=== PATIENT | female | born 1955 | race Caucasian/White ===

== ENCOUNTER 2016-12-01 11:39 | Emergency (ER) | payer MEDICARE, MEDICAID ==
[~2016-12-01] VITALS: Ht 157.5 cm; Wt 108.0 kg
[~2016-12-01 11:39] MED LIST: AMLO10TA62 PO; ASPI-725 PO; ATOR40TA64 PO; CHOL200026 PO; CLOP75TA33 PO; ESCI10TA47 PO; HYDR-3995 PO; INSU100C13 SQ; INSU100V28 SQ; LEVO25TA9 PO; LISI-126 PO; METO-68 PO; NITR0.4T28 SL; QUET200T58 PO; SEVE800T9 PO; TRAZ-173 PO
--- OUTSIDE RECORDS SUMMARY | 2016-12-01 11:44 | XMS REPORT ---
Author Author Beverley Crooks [facility] eClinicalWorks Address Unknown Phone Unavailable Care Team Providers Care Transfer Clerk Name Role Phone Beverley Crooks CP Unavailable Allergies No Known Allergies Problems Problem Type Condition Code Onset Dates Condition Status Problem Pure hypercholesterolemia 272.0 Active Problem Polyneuropathy in diabetes 357.2 Active Problem Diabetes mellitus without mention of complication, type II or unspecified type, uncontrolled 250.02 Active Problem Depressive disorder, not elsewhere classified 311 Active Problem Renal dialysis status V45.11 Active Problem Chronic pain syndrome 338.4 Active Problem Coronary atherosclerosis of [place] coronary artery 414.01 Active Problem Sarcoidosis 135 Active Problem Proliferative diabetic retinopathy 362.02 Active Problem Hypothyroid 244.9 Active Problem Chronic kidney disease, Stage IV (severe) 585.4 Active Problem Unspecified essential hypertension 401.9 Active Problem 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
--- OUTSIDE RECORDS SUMMARY | 2016-12-01 11:44 | XMS REPORT ---
Author Author Beverley Crooks [facility] eClinicalWorks Address Unknown Phone Unavailable Care Team Providers Care Facilities Plant Engineer Name Role Phone Beverley Crooks CP Unavailable Allergies No Known Allergies Problems Problem Type Condition ICD-9 Code Onset Dates Condition Status Problem Pure hypercholesterolemia 272.0 Active Problem Polyneuropathy in diabetes 357.2 Active Problem Diabetes mellitus without mention of complication, type II or unspecified type, uncontrolled 250.02 Active Problem Depressive disorder, not elsewhere classified 311 Active Problem Renal dialysis status V45.11 Active Problem Chronic pain syndrome 338.4 Active Problem Coronary atherosclerosis of [place] coronary artery 414.01 Active Problem Sarcoidosis 135 Active Problem Proliferative diabetic retinopathy 362.02 Active Problem Hypothyroid 244.9 Active Problem Chronic kidney disease, Stage IV (severe) 585.4 Active Problem Unspecified essential hypertension 401.9 Active Problem 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
--- OUTSIDE RECORDS SUMMARY | 2016-12-01 11:44 | XMS REPORT ---
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 Assessment Closed fracture of epiphysis (separation) (upper) of neck of femur 820.01 Active Problem Pure hypercholesterolemia 272.0 Active Problem Polyneuropathy in diabetes 357.2 Active Problem Diabetes mellitus without mention of complication, type II or unspecified type, uncontrolled 250.02 Active Problem Depressive disorder, not elsewhere classified 311 Active Problem Renal dialysis status V45.11 Active Assessment Depressive disorder, not elsewhere classified 311 Active Assessment Chronic pain syndrome 338.4 Active Problem Chronic pain syndrome 338.4 Active Assessment Hypothyroid 244.9 Active Problem Coronary atherosclerosis of [place] coronary artery 414.01 Active Problem Sarcoidosis 135 Active Problem Proliferative diabetic retinopathy 362.02 Active Problem Hypothyroid 244.9 Active Assessment Polyneuropathy in diabetes 357.2 Active Assessment Chronic kidney disease, Stage IV (severe) 585.4 Active Assessment Renal dialysis status V45.11 Active Assessment Coronary atherosclerosis of [place] coronary artery 414.01 Active Assessment Diabetes mellitus without mention of complication, type II or unspecified type, uncontrolled 250.02 Active Problem Chronic kidney disease, Stage IV (severe) 585.4 Active Assessment Unspecified essential hypertension 401.9 Active Assessment Pure hypercholesterolemia 272.0 Active Medications Medication Code System Code Instructions Start Date End Date Status Dosage Quetiapine Fumarate [facility] [address]-51 200 MG Orally Once a day 1 tablet at bedtime Metoprolol Tartrate [facility] [address]-82 50 MG Orally Twice a day Oct 10, 2012 1 tablet Renvela [facility] [address]-91 800 MG Orally Three times a day 2 tablets with meals Lisinopril [facility] [address]-08 20MG Orally Once a day 1 tablet Tramadol HCl [facility] [address]-13 50 MG Orally tid 1-2 tablets Aspirin [facility] [address]-20 81 mg Orally Once a day 1 tablet Humalog KwikPen [facility] [address]-04 100 UNIT/ML Subcutaneous three times a day 18 units with meals Lantus SoloStar [facility] [address]-07 100 UNIT/ML Subcutaneous Once a day December 17, 2013 80 units Hydrocodone-Acetaminophen [facility] [address]-27 10-325 MG Orally 1 TID prn pain Sep 22, 2014 Apr 15, 2015 1 tablet Plavix [facility] [address]-56 75 MG Orally Once a day 1 tablet [employer] [place] [facility] [address] 31G X 8 MM 4 times every day May 18, 2014 as directed Blood Glucose Meter [facility] 0 1 as directed. Dispense lancets and test strips dx , 250.02. Patient with low vision, needs large-number meter or talking meter TID , Jul 16, 2014 1, Cholecalciferol [facility] [address]-24 1000 UNIT Orally Once a day 2 tablets Escitalopram Oxalate [facility] [address]-27 10 MG Orally Once a day 1 tablet OneTouch Ultra Blue test strips [facility] [id number] none in vitro Dx. 250.02 three times daily November 02, 2014 as directed Amlodipine Besylate [facility] [address]-97 10 MG Orally Once a day 1 tablet Nitrostat [facility] [address]-42 0.4 MG Sublingual max 3 doses 1 tablet under the tongue, may repeat every 5 min x3 then call 911 Procedures Procedure Coding System Code Date OFFICE VISIT, EST-MOD. COMPLEXITY (25 MIN) CPT-4 88442 March 16, 2015 HEMOGLOBIN A1C, IN HOUSE CPT-4 79152 March 16, 2015 [facility] visit Established Patient CPT-4 G0467 March 16, 2015 IH LIPID PANEL CPT-4 53110 March 16, 2015 RENAL FUNCTION PANEL CPT-4 88914 March 16, 2015 Vital Signs Date/Time: March 16, 2015 Height 62.5 in Weight 236.4 lbs Temperature 98.2 F Blood Pressure Diastolic 83 mm Hg Blood Pressure Systolic 190 mm Hg Cardiac Monitoring Heart Rate 71 /min BMI 42.54 Index Respiratory Rate 16 /min Results Name Result Date Reference Range Unit Abnormality Flag In House HB A1c In House Renal Function Panel Summary Purpose eClinicalWorks Submission
--- OUTSIDE RECORDS SUMMARY | 2016-12-01 11:44 | XMS REPORT ---
Author Author Beverley Crooks [facility] eClinicalWorks Address Unknown Phone Unavailable Care Team Providers Care Bicycle Technician Name Role Phone Beverley Crooks CP Unavailable [...] syndrome 338.4 Active Problem Coronary atherosclerosis of [place] coronary artery 414.01 Active Problem Sarcoidosis 135 Active Problem Proliferative diabetic retinopathy 362.02 Active Problem Hypothyroid 244.9 Active Assessment Renal dialysis status V45.11 Active Problem Chronic kidney disease, Stage IV (severe) 585.4 Active Assessment Diabetes mellitus without mention of complication, type II or unspecified type, uncontrolled 250.02 Active Problem Unspecified essential hypertension 401.9 Active Assessment Unspecified essential hypertension 401.9 Active Problem 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
--- OUTSIDE RECORDS SUMMARY | 2016-12-01 11:44 | XMS REPORT ---
Author Author Beverley Crooks [facility] eClinicalWorks Address Unknown Phone Unavailable Care Team Providers Care Programming Equipment Operator Name Role Phone Beverley Crooks CP Unavailable Allergies No Known Allergies Problems Problem Type Condition Code Onset Dates Condition Status Problem Renal dialysis status V45.11 Active Problem Chronic pain syndrome 338.4 Active Problem Depressive disorder, not elsewhere classified 311 Active Problem Chronic kidney disease, stage 4 (severe) N18.4 Active Assessment Major depressive disorder, single episode, unspecified F32.9 Active Problem 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 Problem Type 2 diabetes mellitus with hyperglycemia E11.65 Active Problem Chronic pain syndrome G89.4 Active Problem Major depressive disorder, single episode, unspecified F32.9 Active Problem 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.359 Active Problem Hypothyroidism, unspecified E03.9 Active Problem 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 Problem Pure hypercholesterolemia 272.0 Active Problem Chronic kidney disease, Stage IV (severe) 585.4 Active Problem Unspecified essential hypertension 401.9 Active Problem Sarcoidosis 135 Active Problem Coronary atherosclerosis of [place] coronary artery 414.01 Active Problem Diabetes mellitus without mention of complication, type II or unspecified type, uncontrolled 250.02 Active Problem Hypothyroid 244.9 Active Problem Polyneuropathy in diabetes 357.2 Active Problem Proliferative diabetic retinopathy 362.02 Active Medications Medication Code System Code Instructions Start Date End Date Status Dosage Escitalopram Oxalate [facility] [address]-04 10 MG Orally Once a day 1 tablet Results No Known Results Summary Purpose eClinicalWorks Submission
--- OUTSIDE RECORDS SUMMARY | 2016-12-01 11:45 | XMS REPORT ---
Author Author Shaila Jolly [facility] Address [address] [id number] Care Team Providers Care Powerbuilder Name Role Phone Shaila Jolly Unavailable [phone] PROBLEMS Type Condition ICD9-CM Code EYH63-DY Code Onset Dates Condition Status SNOMED Code Problem Generalized abdominal pain R10.84 Active 064902478 Problem Pharyngoesophageal dysphagia R13.14 Active 40936878 Problem Elevated liver enzymes R74.8 Active 594863981 Assessment Gastroesophageal reflux disease, esophagitis presence not specified K21.9 Oct, Active 089404986 Problem Diarrhea, unspecified type R19.7 Active 80998647 Problem Nausea R11.0 Active 709405747 Problem Elevated ferritin level R79.89 Active 405375022 Problem Gastroesophageal reflux disease, esophagitis presence not specified K21.9 Active 295326542 Problem Adenomatous polyp of colon, unspecified part of colon D12.6 Active 355405613 Problem Colitis K52.9 Active 50796982 Problem Schatzki's ring K22.2 Active 322258907 Problem Hiatal hernia K44.9 Active 18530822 ALLERGIES Substance Reaction Event Type Date Status Neurotips Unknown Drug Allergy Oct, Active Lyrica Unknown Drug Allergy Oct, Active SOCIAL HISTORY No smoking Hx information available PLAN OF CARE VITAL SIGNS Heart Rate 74 /min 2016-10-24 Respiratory Rate 18 /min 2016-10-24 Blood pressure systolic 128 mm Hg 2016-10-24 Blood pressure diastolic 72 mm Hg 2016-10-24 MEDICATIONS Medication Instructions Dosage Frequency Start Date End Date Duration Status NovoLog 100 UNIT/ML Subcutaneous three times a day 25 units 8h Active Trazodone HCl 100 MG Orally Once a day 1 tablet at bedtime 24h Active Clopidogrel Bisulfate 75 MG Orally Once a day 1 tablet 24h Active Atorvastatin Calcium 40 MG Orally Once a day 1 tablet 24h Active Renvela 800 MG Orally Three times a day 1 tablet with meals 8h Active Metoprolol Tartrate 50 MG Orally Twice a day 1 tablet with food 12h Active Lantus 100 UNIT/ML 100 units at bedtime Active Lisinopril 20 MG Active Escitalopram Oxalate 10 MG Orally Once a day 1 tablet 24h Active Pantoprazole Sodium 40 MG Orally in morning 1 tablet Oct, 30 day(s) Active Quetiapine Fumarate 200 MG Orally Once a day 1 tablet at bedtime 24h Active Nulytely with Flavor Packs 420 GM Orally take as directed as directed Sep, 1 days Active RESULTS No Results PROCEDURES Procedure Date Ordered Related Diagnosis Body Site Office Visit, Est Pt., Level 4 Oct 24, 2016 IMMUNIZATIONS No Known Immunizations
--- OUTSIDE RECORDS SUMMARY | 2016-12-01 11:45 | XMS REPORT | Referral Summary ---
Author Author [facility] Organization [facility] Address Unknown Phone Unavailable Care Team Providers Care Dry House Worker Name Role Phone Bren Milner Primary Care Physician [phone] Encounter [facility] [id number] Date(s): 01/11/15 - 01/19/[address] [facility] [address] [place] [address] Discharge Diagnosis: Hypertension Discharge Diagnosis: Coronary artery disease Discharge Diagnosis: Hyponatremia Discharge Diagnosis: Anemia of chronic disease Discharge Diagnosis: Fall from slip, trip, or stumble Discharge Diagnosis: Comminuted right femur fracture - ORIF with IMN on 01/12/15 Discharge Diagnosis: ESRD on dialysis - M, W, F Discharge Diagnosis: Morbid obesity Final: MORBID OBESITY Final: Anemia in chronic kidney disease Final: OTHER AND UNSPECIFIED HYPERLIPIDEMIA Final: CORONARY ATHEROSCLEROSIS OF [place] CORONARY ARTERY Final: Renal dialysis status Final: Long-Term (Current) Use of Insulin Final: PERCUTANEOUS TRANSLUMINAL CORONARY ANGIOPLASTY, POSTSURGICAL STATUS Final: OTHER OPIATES AND RELATED NARCOTICS CAUSING ADVERSE EFFECTS IN THERAPEUTIC USE Final: FALL FROM OTHER SLIPPING, TRIPPING, OR STUMBLING Final: ACCIDENTS OCCURRING IN RESIDENTIAL INSTITUTION Final: HOME ACCIDENTS Final: SUPRACONDYLAR FRACTURE OF FEMUR, CLOSED Final: End stage renal disease Final: ACUTE RESPIRATORY FAILURE Final: HYPOSMOLALITY AND/OR HYPONATREMIA Final: Hypertensive chronic kidney disease, unspecified, with chronic kidney disease stage V or end stage renal disease Final: Body Mass Index 40.0-44.9, Adult Final: Diabetes mellitus with neurological manifestations, type II or unspecified type, not stated as uncontrolled Final: GASTROPARESIS Final: DISORDER OF BONE AND CARTILAGE, UNSPECIFIED Discharge Disposition: 03-[facility] Attending Physician: Wilton Mena MD Admitting Physician: Wilton Mena MD Vital Signs Most recent to 1 oldest [Reference Range]: Temperature Oral 36.7 degC [35.8-37.3 degC] (01/19/15 7:00 AM) Temperature Skin 36.4 degC [36-37 degC] (01/12/15 4:30 PM) Temperature Temporal 36 degC Artery [36.3-37.8 *LOW* degC] (01/11/15 5:27 PM) Peripheral Pulse 69 bpm Rate [60-100 bpm] (01/19/15 9:25 AM) Heart Rate Monitored 68 bpm [60-100 bpm] (01/19/15 4:37 AM) Respiratory Rate 18 br/min [14-20 br/min] (01/19/15 7:00 AM) Blood Pressure 171/71 mmHg [90-140/60-90 mmHg] *HI* (01/19/15 9:25 AM) Mean Arterial 78 mmHg Pressure, Cuff (01/12/15 4:30 PM) SpO2 92 % (01/19/15 10:39 AM) Problem List Condition Effective Dates Status Health Status Informant Acute chest Active patient pain(Confirmed) Acute Active pain(Confirmed) At risk for activity Active intolerance(Confirme d)1 At risk of pressure Active sore(Confirmed) Benign essential Active hypertension(Confirm ed) Bowel Active dysfunction(Confirme d)2 Depressive disorder, Active not elsewhere classified(Confirmed ) Diabetes(Confirmed) Active patient Dialysis Active patient patient(Confirmed) Fluid Active imbalance(Confirmed) 3 Shingles(Confirmed)4 Active High Active cholesterol(Confirme d) Severe Active Hypertriglyceridemia (Confirmed) Impaired skin Active integrity(Confirmed) 5 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 ) Mixed Active hyperlipidemia(Confi rmed) Morbid Active patient obesity(Confirmed) Post herpetic Active neuralgia(Confirmed) 6 Self -care Active deficit(Confirmed)7 Tissue perfusion Active alteration(Confirmed )8 Controlled type 2 Active diabetes with renal manifestation(Confir med) 1Problem added automatically by system based on initiation of At Risk for Activity Intolerance Plan of Care 2Problem added automatically by system based on initiation of Bowel Dysfunction Plan of Care 3Problem added automatically by system based on initiation of Fluid Volume Imbalance Plan of Care 412/, 03/10, 01/09 5Problem added automatically by system based on initiation of Impaired Skin Integrity Plan of Care 612/, 03/10, 01/09 7Problem added automatically by system based on initiation of Self Care Deficit Plan of Care 8Problem added automatically by system based on initiation of Tissue Perfusion Cerebral Plan of Care Allergies, Adverse Reactions, Alerts Substance Reaction Severity Status gabapentin Active Lyrica Active Medications amLODIPine 10 mg, Oral, Daily, 0 Refill(s) Start Date: 09/11/14 Status: Ordered aspirin 81 mg, Oral, Daily, 0 Refill(s) Start Date: 09/11/14 Status: Ordered atorvastatin 40 mg oral tablet 1 tabs, Oral, Daily, # 30 tabs, 6 Refill(s), other reason (Rx) Start Date: 09/11/14 Status: Ordered calcitriol 0.5 mcg, Oral, MWF, 0 Refill(s) Start Date: 09/11/14 Status: Ordered escitalopram 10 mg, Oral, Daily, 0 Refill(s) Start Date: 01/11/15 Status: Ordered insulin lispro 100 units/mL subcutaneous solution Sliding Scale Medium, SubCutaneous, As Indicated, Hyperglycemia/High Blood Sugar , 0 Refill(s) Start Date: 01/19/15 Status: Ordered insulin lispro 100 units/mL subcutaneous solution Sliding Scale Medium, SubCutaneous, As Indicated, Hyperglycemia/High Blood Sugar , 0 Refill(s) Start Date: 01/19/15 Status: Ordered insulin lispro 100 units/mL subcutaneous solution 18 units, SubCutaneous, TIDWM, 0 Refill(s) Start Date: 01/19/15 Status: Ordered insulin lispro 100 units/mL subcutaneous solution 0.36 mL, SubCutaneous, TIDWM, 0 Refill(s) Start Date: 09/11/14 Status: Ordered Lantus 80 units, SubCutaneous, qPM, 0 Refill(s) Start Date: 09/11/14 Status: Ordered lisinopril 20 mg, Oral, Daily, 0 Refill(s) Start Date: 09/11/14 Status: Ordered metoprolol tartrate 50 mg oral tablet 1 tabs, Oral, BID, 0 Refill(s) Start Date: 09/11/14 Status: Ordered Nitrostat 0.4 mg sublingual tablet 1 tabs, SubLingual, q5min, as needed for chest pain, not to exceed 3 doses/15 min--if pain persists, seek medical attention, # 100 tabs, 0 Refill(s) Start Date: 09/11/14 Status: Ordered Plavix 75 mg, Oral, Daily, 0 Refill(s) Start Date: 09/11/14 Status: Ordered Renvela 800 mg oral tablet 1,600 mg 2 tabs, Oral, TID, # 90 tabs, 0 Refill(s) Start Date: 02/11/15 Status: Ordered SEROquel 150 mg, Oral, Bedtime (once a day), 0 Refill(s) Start Date: 09/11/14 Status: Ordered traMADol 50 mg oral tablet 50-100 mg, Oral, q4hr, Pain Moderate (4-6), [facility] [phone], # 90 tabs, 0 Refill(s) Start Date: 01/27/15 Status: Ordered Results Blood Gases Most recent to 1 oldest [Reference Range]: pH [7.35-7.45] 7.33 *LOW* (01/12/15 8:55 AM) pCO2 Art [35-45 56 mmHg mmHg] *HI* (01/12/15 8:55 AM) Arterial PO2 [80-100 82 mmHg mmHg] (01/12/15 8:55 AM) Bicarbonate [22-26 29 mEq/L mEq/L] *HI* (01/12/15 8:55 AM) Base Excess Art 2 [0-2] (01/12/15 8:55 AM) pO2 Art [90.0-97.0 95.1 % %] (01/12/15 8:55 AM) LPM Art 4.0 L/min (01/12/15 8:55 AM) O2 Panel Nasal Cannula (01/12/15 8:55 AM) Spec Site Radial-R (01/12/15 8:55 AM) Hematology Most recent to 1 oldest [Reference Range]: WBC [4.8-10.8 9.3 10*3/uL 10*3/uL] (01/18/15 8:35 AM) RBC [4.00-5.20 3.17 10*6/uL 10*6/uL] *LOW* (01/18/15 8:35 AM) Hgb [12.0-16.0 9.2 gm/dL gm/dL] *LOW* (01/18/15 8:35 AM) Hct [37.0-47.0 %] 27.8 % *LOW* (01/18/15 8:35 AM) MCV [82.0-99.0 fL] 87.7 fL (01/18/15 8:35 AM) MCH [27.0-32.0 pg] 29.0 pg (01/18/15 8:35 AM) MCHC [32.0-36.0 33.1 gm/dL gm/dL] (01/18/15 8:35 AM) RDW [11.5-14.5 %] 13.1 % (01/18/15 8:35 AM) Platelet [150-400 222 10*3/uL 10*3/uL] (01/18/15 8:35 AM) MPV [9.4-12.4 fL] 9.6 fL (01/18/15 8:35 AM) Immature 2.0 % Granulocytes *HI* [0.0-1.0 %] (01/18/15 8:35 AM) Neutrophils [51-75 64 % %] (01/18/15 8:35 AM) Lymphocytes [20-46 19 % %] *LOW* (01/18/15 8:35 AM) Monocytes [4-11 %] 10 % (01/18/15 8:35 AM) Eosinophils [0-4 %] 5 % *HI* (01/18/15 8:35 AM) Basophils [0-2 %] 0 % (01/18/15 8:35 AM) Neutro Absolute 5.92 10*3 [1.90-7.00 10*3] (01/18/15 8:35 AM) Lymph Absolute 1.72 10*3 [0.80-3.30 10*3] (01/18/15 8:35 AM) Ada Absolute 0.96 10*3 [0.30-1.00 10*3] (01/18/15 8:35 AM) Eos Absolute 0.50 10*3 [0.00-0.50 10*3] (01/18/15 8:35 AM) Baso Absolute 0.02 10*3 [0.00-0.20 10*3] (01/18/15 8:35 AM) Nucleated RBC 0.0 /100 WBC Automated [0 /100 (01/18/15 8:35 AM) WBC] Chemistry Most recent to 1 oldest [Reference Range]: Sodium Lvl [136-144 123 mEq/L mEq/L] *LOW* (01/18/15 8:35 AM) Potassium Lvl 5.6 mEq/L [3.6-5.1 mEq/L] *HI* (01/18/15 8:35 AM) Chloride [99-109 91 mEq/L mEq/L] *LOW* (01/18/15 8:35 AM) CO2 [22-32 mEq/L] 23 mEq/L (01/18/15 8:35 AM) AGAP [3-20] 9 (01/18/15 8:35 AM) BUN [4-20 mg/dL] 39 mg/dL *HI* (01/18/15 8:35 AM) Glucose Lvl [70-100 188 mg/dL mg/dL] *HI* (01/18/15 8:35 AM) Creatinine Lvl 6.61 mg/dL [0.44-1.03 mg/dL] *HI* (01/18/15 8:35 AM) eGFR [>60] 6 1 *ABN* (01/18/15 8:35 AM) Calcium Lvl 8.6 mg/dL [8.6-10.0 mg/dL] (01/18/15 8:35 AM) Albumin Lvl [3.5-4.8 2.5 gm/dL gm/dL] *LOW* (01/18/15 8:35 AM) Iron [50-170 mcg/dL] 30 mcg/dL *LOW* (01/13/15 5:16 AM) TIBC [286-569 213 mcg/dL mcg/dL] *LOW* (01/13/15 5:16 AM) Iron Sat [11-46 %] 14 % (01/13/15 5:16 AM) Transferrin [192-382 143 mg/dL mg/dL] *LOW* (01/13/15 5:16 AM) Ferritin Lvl [11-307 1239 ng/mL ng/mL] *HI* (01/13/15 5:16 AM) Phosphorus [2.4-4.7 4.6 mg/dL 2 mg/dL] (01/18/15 8:35 AM) Blood Glucose, 200 mg/dL Capillary [74-106 *HI* mg/dL] (01/19/15 11:29 AM) 1Result Comment: Multiply eGFR results by 1.21 for race. 2Result Comment: High dosages of liposomal Amphotericin B (AmBisome) therapy or other drug preparations that use a liposomal envelope to facilitate drug delivery may cause falsely elevated results for phosphorus. Toxicology Most recent to 1 oldest [Reference Range]: Ethanol Lvl Not Detected (01/11/15 3:53 PM) Blood Bank Results Most recent to 1 oldest [Reference Range]: ABO/Rh O POS (01/13/15 3:26 PM) Antibody Screen Tube NEG (01/13/15 3:26 PM) Immunizations Vaccine Date Refusal Reason tetanus-diphth toxoids (Td) adult/adol 04/08/03 Procedures Procedure Date Related Diagnosis Body Site Arterial puncture, withdrawal of blood for 01/12/15 diagnosis Open Reduction Internal Fixation Femur Distal 01/12/15 with Intramedullary Nail (Right)1 Application of long leg splint (thigh to 01/11/15 ankle or toes) Adenoidectomy Anesthesia for vaginal hysterectomy Cholecystocecostomy Closure of arterial graft-enteric fistula Decompression laminectomy of lumbar spine Gall Bladder Hysterectomy2 Tonsillectomy 1auto-populated from documented surgical case 2w/out BSO, due to bleeding Social History Social History Type Response Smoking Status Never smoker Assessment and Plan No data available for this section
--- OUTSIDE RECORDS SUMMARY | 2016-12-01 11:45 | XMS REPORT ---
Author Author Beverley Crooks [facility] eClinicalWorks Address Unknown Phone Unavailable Care Team Providers Care Director Of Sports Medicine Name Role Phone Beverley Crooks CP Unavailable [...] syndrome 338.4 Active Problem Coronary atherosclerosis of [place] coronary artery 414.01 Active Problem Sarcoidosis 135 Active Problem Proliferative diabetic retinopathy 362.02 Active Problem Hypothyroid 244.9 Active Assessment Type 2 diabetes mellitus with hyperglycemia E11.65 Active Problem Chronic kidney disease, Stage IV (severe) 585.4 Active Problem Unspecified essential hypertension 401.9 Active Problem 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 Dispense lancets and test strips dx , 250.02. Patient with low vision, needs large-number meter or talking meter TID , Jul 16, 2014 1, Renvela [facility] [address]-69 800 MG Orally Three times a day 2 tablets with meals Plavix [facility] [address]-82 75 MG Orally Once a day 1 tablet Seroquel [facility] [address]-70 200 MG Orally Once a day 1 tablet at bedtime Cholecalciferol [facility] [address]-11 1000 UNIT Orally Once a day 2 tablets Lantus SoloStar [facility] [address]-08 100 UNIT/ML Subcutaneous Once a day December 17, 2013 85 units Aspirin [facility] [address]-63 81 mg Orally Once a day 1 tablet OneTouch Ultra Blue test strips [facility] [id number] none in vitro Dx. 250.02 three times daily November 02, 2014 as directed Atorvastatin Calcium [facility] [address]-72 40 MG Orally Once a day 1 tablet Nitrostat [facility] [address]-20 0.4 MG Sublingual max 3 doses 1 tablet under the tongue, may repeat every 5 min x3 then call 911 NovoLog Flexpen [facility] [address]-66 100 UNIT/ML Subcutaneous Three times a day Jul 16, 2015 36 units with meals OneTouch Delica Lancets [facility] [address]-73 none subcutaneous Three times a day Jul 16, 2015 as directed (dx E11.65) [employer] [place] [facility] [address] 31G X 8 MM 4 times every day May 18, 2014 as directed Results No Known Results Summary Purpose eClinicalWorks Submission
--- OUTSIDE RECORDS SUMMARY | 2016-12-01 11:45 | XMS REPORT ---
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 Problem Diabetes mellitus without mention of complication, type II or unspecified type, uncontrolled 250.02 Active Problem Pure hypercholesterolemia 272.0 Active Problem Renal dialysis status V45.11 Active Problem Proliferative diabetic retinopathy 362.02 Active Problem Depressive disorder, not elsewhere classified 311 Active Problem Sarcoidosis 135 Active Problem Polyneuropathy in diabetes 357.2 Active Problem Hypothyroid 244.9 Active Problem Coronary atherosclerosis of [place] coronary artery 414.01 Active Assessment Unspecified essential hypertension 401.9 Active Assessment Diabetes mellitus without mention of complication, type II or unspecified type, uncontrolled 250.02 Active Problem Chronic kidney disease, Stage IV (severe) 585.4 Active Assessment Polyneuropathy in diabetes 357.2 Active Problem Unspecified essential hypertension 401.9 Active Medications Medication Code System Code Instructions Start Date End Date Status Dosage Metoclopramide HCl [facility] [address]-30 10 MG Orally Four times a day Active 1 tablet 30 minutes before meals and at bedtime as needed Plavix [facility] [address]-45 75 MG Orally Once a day Active 1 tablet Lisinopril [facility] [address]-98 20MG Orally Once a day Active 1 tablet Colchicine [facility] [address]-29 0.6 MG Orally Twice a day Active 1 tablet Aspirin [facility] [address]-20 81 mg Orally Once a day Active 1 tablet Hydrocodone-Acetaminophen [facility] [address]-62 7.5-325 MG Orally three times a day Apr 14, 2014 Aug 15, 2014 Active 1 tablet as needed Amlodipine Besylate [facility] [address]-68 5 mg Orally Once a day Active 1 tablet [employer] [place] [facility] [address] 31G X 8 MM 4 times every day May 18, 2014 Active as directed NovoLog Flexpen [facility] [address]-78 100 UNIT/ML Subcutaneous Three times daily with meals December 19, 2013 Active 36 units Lantus SoloStar [facility] [address]-02 100 UNIT/ML Subcutaneous Once a day December 17, 2013 Active 80 units Atorvastatin Calcium [facility] [address]-89 20 MG Orally Once a day December 17, 2013 Active 1 tablet Quetiapine Fumarate [facility] [address]-63 100 MG Orally Once a day Active 1 tablet at bedtime Cymbalta [facility] [address]-12 90 MG Orally daily (30mg and 60mg) Active 1 capsule Levothyroxine Sodium [facility] [address]-42 25 MCG Orally Once a day Active 1 tablet on an empty stomach in the morning Blood Glucose Meter [facility] [address]857 1 as directed. Dispense lancets and test strips as well. Patient with low vision, needs large-number meter or talking meter TID Jul 16, 2014 Active 1 Metoprolol Tartrate [facility] [address]-98 50 MG Orally Twice a day Oct 10, 2012 Active 1 tablet Nitrostat [facility] [address]-73 0.4 MG Sublingual every 0 hrs Active 1 tablet under the tongue and allow to dissolve as needed Cholecalciferol [facility] [address]-39 1000 UNIT Orally Once a day Active 2 tablets Procedures Procedure Coding System Code Date OFFICE VISIT, EST-LOW COMPLEXITY (15 MIN.) CPT-4 11080 Jul 16, 2014 Vital Signs Date/Time: Jul 16, 2014 Height 62.5 inches Weight 242.5 lbs Temperature 98.1 F Blood Pressure Diastolic 64 mm Hg Blood Pressure Systolic 138 mm Hg Cardiac Monitoring Heart Rate 84 Beats per Minute BMI 43.64 Index Respiratory Rate 18 per Minute Results No Known Results Summary Purpose eClinicalWorks Submission
--- OUTSIDE RECORDS SUMMARY | 2016-12-01 11:45 | XMS REPORT ---
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 Problem Diabetes mellitus without mention of complication, type II or unspecified type, uncontrolled 250.02 Active Problem Pure hypercholesterolemia 272.0 Active Problem Chronic kidney disease, Stage IV (severe) 585.4 Active Problem Unspecified essential hypertension 401.9 Active Problem Renal dialysis status V45.11 Active Problem Proliferative diabetic retinopathy 362.02 Active Problem Depressive disorder, not elsewhere classified 311 Active Problem Sarcoidosis 135 Active Problem Polyneuropathy in diabetes 357.2 Active Problem Hypothyroid 244.9 Active Problem Coronary atherosclerosis of [place] coronary artery 414.01 Active Medications Medication Code System Code Instructions Start Date End Date Status Dosage Blood Glucose Meter [facility] 59528 1 as directed. Dispense lancets and test strips dx, 250.02. Patient with low vision, needs large-number meter or talking meter TID, Jul 16, 2014 Active 1, Vital Signs Date/Time: Jul 16, 2014 Height 62.5 inches Weight 242.5 lbs Temperature 98.1 F Blood Pressure Diastolic 64 mm Hg Blood Pressure Systolic 138 mm Hg Cardiac Monitoring Heart Rate 84 Beats per Minute BMI 43.64 Index Respiratory Rate 18 per Minute Results No Known Results Summary Purpose eClinicalWorks Submission
--- OUTSIDE RECORDS SUMMARY | 2016-12-01 11:45 | XMS REPORT ---
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
--- OUTSIDE RECORDS SUMMARY | 2016-12-01 11:45 | XMS REPORT ---
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
--- OUTSIDE RECORDS SUMMARY | 2016-12-01 11:45 | XMS REPORT ---
Author Author Beverley Crooks [facility] eClinicalWorks Address Unknown Phone Unavailable Care Team Providers Care [place] Roofer Name Role Phone Beverley Crooks CP Unavailable Allergies No Known Allergies Problems Problem Type Condition Code Onset Dates Condition Status Problem Renal dialysis status V45.11 Active Problem Chronic pain syndrome 338.4 Active Problem Depressive disorder, not elsewhere classified 311 Active Problem Chronic kidney disease, stage 4 (severe) N18.4 Active Assessment Chronic pain syndrome G89.4 Active Problem Dependence on renal dialysis Z99.2 [...] Sarcoidosis 135 Active Problem Coronary atherosclerosis of [place] coronary artery 414.01 Active Problem Diabetes mellitus without mention of complication, type II or unspecified type, uncontrolled 250.02 Active Problem Hypothyroid 244.9 Active Problem Polyneuropathy in diabetes 357.2 Active Problem Proliferative diabetic retinopathy 362.02 Active Medications Medication Code System Code Instructions Start Date End Date Status Dosage [facility] [address]-69 10-325 MG Orally every 6 hrs, May fill 03-17-16. November 17, 2015 Apr 13, 2016 1 tablet as needed Results No Known Results Summary Purpose eClinicalWorks Submission
--- OUTSIDE RECORDS SUMMARY | 2016-12-01 11:45 | XMS REPORT ---
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
--- OUTSIDE RECORDS SUMMARY | 2016-12-01 11:45 | XMS REPORT ---
Author Author Beverley Crooks [facility] eClinicalWorks Address Unknown Phone Unavailable Care Team Providers Care Is/It Project Manager Name Role Phone Beverley Crooks CP Unavailable Allergies, Adverse Reactions, Alerts Substance Reaction Event Type Neurontin hives, rash Drug Allergy Lyrica Suicidality Drug Allergy Problems Problem Type Condition Code Onset Dates Condition Status Problem Pure hypercholesterolemia 272.0 Active Problem Polyneuropathy in diabetes 357.2 Active Problem Diabetes mellitus without mention of complication, type II or unspecified type, uncontrolled 250.02 Active Problem Depressive disorder, not elsewhere classified 311 Active Problem Renal dialysis status V45.11 Active Problem Chronic pain syndrome 338.4 Active Problem Coronary atherosclerosis of [place] coronary artery 414.01 Active Problem Sarcoidosis 135 Active Problem Proliferative diabetic retinopathy 362.02 Active Problem Hypothyroid 244.9 Active Assessment Hypothyroid 244.9 Active Assessment Chronic kidney disease, Stage IV (severe) 585.4 Active Assessment Chronic pain syndrome 338.4 Active Assessment Diabetes mellitus without mention of complication, type II or unspecified type, uncontrolled 250.02 Active Problem Chronic kidney disease, Stage IV (severe) 585.4 Active Assessment Unspecified essential hypertension 401.9 Active Problem Unspecified essential hypertension 401.9 Active Assessment Pure hypercholesterolemia 272.0 Active Problem 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 250.02 three times daily November 02, 2014 as directed Hydrocodone-Acetaminophen [facility] [address]-92 10-325 MG Orally 1 TID prn pain Sep 22, 2014 December 23, 2014 1 tablet Lisinopril [facility] [address]-41 20MG Orally Once a day 1 tablet Amlodipine Besylate [facility] [address]-72 5 mg Orally Once a day 1 tablet Lantus SoloStar [facility] [address]-91 100 UNIT/ML Subcutaneous Once a day December 17, 2013 80 units Cholecalciferol [facility] [address]-92 1000 UNIT Orally Once a day 2 tablets Quetiapine Fumarate [facility] [address]-20 100 MG Orally Once a day 1 tablet at bedtime Colchicine [facility] [address]-43 0.6 MG Orally Twice a day 1 tablet Levothyroxine Sodium [facility] [address]-91 25 MCG Orally Once a day 1 tablet on an empty stomach in the morning Metoprolol Tartrate [facility] [address]-32 50 MG Orally Twice a day Oct 10, 2012 1 tablet Metoclopramide HCl [facility] [address]-58 10 MG Orally Four times a day 1 tablet 30 minutes before meals and at bedtime as needed Blood Glucose Meter [place] 0 1 as directed. Dispense lancets and test strips dx , 250.02. Patient with low vision, needs large-number meter or talking meter TID , Jul 16, 2014 1, Aspirin [facility] [address]-53 81 mg Orally Once a day 1 tablet Nitrostat [facility] [address]-44 0.4 MG Sublingual every 0 hrs 1 tablet under the tongue and allow to dissolve as needed Lipitor [facility] [address]-47 10 MG Orally Once a day 1 tablet Cymbalta [facility] [address]-89 90 MG Orally daily (30mg and 60mg) 1 capsule Plavix [facility] [address]-32 75 MG Orally Once a day 1 tablet Procedures Procedure Coding System Code Date OFFICE VISIT, EST-MOD. COMPLEXITY (25 MIN) CPT-4 35217 November 23, 2014 [facility] visit Established Patient CPT-4 G0467 November 23, 2014 Vital Signs Date/Time: November 23, 2014 Height 62.5 in Weight 237.12 lbs Temperature 98.4 F Blood Pressure Diastolic 78 mm Hg Blood Pressure Systolic 136 mm Hg Cardiac Monitoring Heart Rate 84 /min BMI 42.67 Index Respiratory Rate 16 /min Results No Known Results Summary Purpose eClinicalWorks Submission
--- OUTSIDE RECORDS SUMMARY | 2016-12-01 11:46 | XMS REPORT ---
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 To be filled or later 1 TID prn pain Sep 22, 2014 May 14, 2015 1 tablet Results No Known Results Summary Purpose eClinicalWorks Submission
--- OUTSIDE RECORDS SUMMARY | 2016-12-01 11:46 | XMS REPORT ---
Author Author Beverley Crooks Organization eClinicalWorks Address Unknown Phone Unavailable Care Team Providers Care Hackler Doll Wigs Name Role Phone Beverley Crooks CP Unavailable Allergies No Known Allergies Problems Problem Type Condition Code Onset Dates Condition Status Problem Renal dialysis status V45.11 Active Problem Chronic pain syndrome 338.4 Active Problem Depressive disorder, not elsewhere classified 311 Active Problem Chronic kidney disease, stage 4 (severe) N18.4 Active Problem Dependence on renal dialysis Z99.2 [...] Sarcoidosis 135 Active Problem Coronary atherosclerosis of [place] coronary artery 414.01 Active Problem Diabetes mellitus without mention of complication, type II or unspecified type, uncontrolled 250.02 Active Problem Hypothyroid 244.9 Active Problem Polyneuropathy in diabetes 357.2 Active Problem Proliferative diabetic retinopathy 362.02 Active Medications No Known Medications Results No Known Results Summary Purpose eClinicalWorks Submission
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
--- OUTSIDE RECORDS SUMMARY | 2016-12-01 11:46 | XMS REPORT ---
Author Author Beverley Crooks [employer] Address Unknown Phone Unavailable Care Team Providers Care Tack Cutter Name Role Phone Beverley Crooks CP Unavailable [...] syndrome 338.4 Active Problem Coronary atherosclerosis of [place] coronary artery 414.01 Active Problem Sarcoidosis 135 Active Problem Proliferative diabetic retinopathy 362.02 Active Problem Hypothyroid 244.9 Active Assessment Chronic kidney disease, stage 4 (severe) N18.4 Active Problem Chronic kidney disease, Stage IV (severe) 585.4 Active Assessment Chronic pain syndrome G89.4 Active Problem Unspecified essential hypertension 401.9 Active Assessment Type 2 diabetes mellitus with hyperglycemia E11.65 Active Problem 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 Medications Medication Code System Code Instructions Start Date End Date Status Dosage Aspirin [facility] [address]-47 81 mg Orally Once a day 1 tablet Humalog KwikPen [facility] [address]-15 100 UNIT/ML Subcutaneous three times a day 36 units with meals Metoprolol Tartrate [facility] [address]-31 50 MG Orally Twice a day Oct 10, 2012 1 tablet Amlodipine Besylate [facility] [address]-68 10 MG Orally Twice every day 1 tablet OneTouch Ultra Blue test strips [facility] 55858649905 none in vitro Dx. 250.02 three times daily November 02, 2014 as directed Plavix [facility] [address]-84 75 MG Orally Once a day 1 tablet Seroquel [facility] [address]-29 200 MG Orally Once a day 1 tablet at bedtime [place] [facility] [address]-96 7.5-325 MG Orally tid Jul 15, 2015 1 tablet as needed Renvela [facility] [address]-12 800 MG Orally Three times a day 2 tablets with meals Lisinopril [facility] [address]-52 20 MG Orally Once a day 1 tablet Cholecalciferol [facility] [address]-96 1000 UNIT Orally Once a day 2 tablets Blood Glucose Meter [facility] 0 1 as directed. Dispense lancets and test strips dx , 250.02. Patient with low vision, needs large-number meter or talking meter TID , Jul 16, 2014 1, Nitrostat [facility] [address]-81 0.4 MG Sublingual max 3 doses 1 tablet under the tongue, may repeat every 5 min x3 then call [address] [place] [facility] [address] 31G X 8 MM 4 times every day May 18, 2014 as directed Escitalopram Oxalate [facility] [address]-59 10 MG Orally Once a day 1 tablet Lantus SoloStar [facility] [address]-92 100 UNIT/ML Subcutaneous Once a day December 17, 2013 85 units Atorvastatin Calcium [facility] [address]-27 40 MG Orally Once a day 1 tablet Procedures Procedure Coding System Code Date OFFICE VISIT, EST-LOW COMPLEXITY (15 MIN.) CPT-4 01047 Jun 15, 2015 [facility] visit Established Patient CPT-4 G0467 Jun 15, 2015 Vital Signs Date/Time: Jun 15, 2015 Height 62.5 in Weight 234.5 lbs Temperature 98.0 F Blood Pressure Diastolic 74 mm Hg Blood Pressure Systolic 130 mm Hg Cardiac Monitoring Heart Rate 72 /min BMI 42.20 Index Respiratory Rate 16 /min Results No Known Results Summary Purpose [employer]ClinicalWorks Submission
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
--- OUTSIDE RECORDS SUMMARY | 2016-12-01 11:46 | XMS REPORT ---
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 Problem Diabetes mellitus due to underlying condition with diabetic neuropathy , unspecified E08.40 Active Problem Unspecified essential hypertension 401.9 Active Problem Chronic kidney disease, Stage IV (severe) 585.4 Active Problem Pure hypercholesterolemia E78.0 Active Problem 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 Problem 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.359 Active Problem Type 2 diabetes mellitus with hyperglycemia E11.65 Active Problem Chronic kidney disease, stage 4 (severe) N18.4 Active Problem Polyneuropathy in diabetes 357.2 Active Problem Sarcoidosis 135 Active Problem Pure hypercholesterolemia 272.0 Active Problem Diabetes mellitus without mention of complication, type II or unspecified type, uncontrolled 250.02 Active Problem Proliferative diabetic retinopathy 362.02 Active Problem Renal dialysis status V45.11 Active Problem Coronary atherosclerosis of [place] coronary artery 414.01 Active Problem Depressive disorder, not elsewhere classified 311 Active Problem Hypothyroid 244.9 Active Problem Chronic pain syndrome 338.4 Active Medications No Known Medications Results No Known Results Summary Purpose [employer] Submission
--- OUTSIDE RECORDS SUMMARY | 2016-12-01 11:47 | XMS REPORT | Referral Summary ---
Author Author [facility] Organization [facility] Address Unknown Phone Unavailable Care Team Providers Care Brass Pourer Name Role Phone ValeriyMiguel avalosBeverley Primary Care Physician [phone] Encounter VC Date(s): 08/11/15 - 08/17/15 [facility] [address] [place] [address] Discharge Disposition: 03-Nursing Home Facility Attending Physician: Daniel Beard MD Admitting Physician: Daniel Beard MD Vital Signs Most recent to 1 oldest [Reference Range]: Temperature Oral 37.0 degC [35.8-37.3 degC] (08/17/15 8:36 AM) Temperature Skin 36.4 degC [36-37 degC] (08/11/15 3:15 PM) Temperature Temporal 36.5 degC Artery [36.3-37.8 (08/11/15 8:10 AM) degC] Peripheral Pulse 72 bpm Rate [60-100 bpm] (08/17/15 8:36 AM) Heart Rate Monitored 88 bpm [60-100 bpm] (08/12/15 4:00 AM) Respiratory Rate 18 br/min [14-20 br/min] (08/17/15 8:36 AM) Blood Pressure 133/70 mmHg [90-140/60-90 mmHg] (08/17/15 8:36 AM) Mean Arterial 74 mmHg Pressure, Cuff (08/11/15 3:30 PM) SpO2 92 % (08/17/15 8:36 AM) Problem List Condition Effective Dates Status Health Status Informant Acute chest Active patient pain(Confirmed) Acute Active pain(Confirmed) At risk for activity Active intolerance(Confirme d)1 At risk for Active falls(Confirmed)2 At risk of pressure Active sore(Confirmed) Benign essential Active hypertension(Confirm ed) Bowel Active dysfunction(Confirme d)3 Depressive disorder, Active not elsewhere classified(Confirmed ) Diabetes(Confirmed) Active patient Dialysis Active patient patient(Confirmed) Fluid Active imbalance(Confirmed) 4 Shingles(Confirmed)5 Active High Active cholesterol(Confirme d) Severe Active Hypertriglyceridemia (Confirmed) Impaired skin Active integrity(Confirmed) 6 Knowledge Active deficit(Confirmed)7 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 3Problem added automatically by system based on initiation of Bowel Dysfunction Plan of Care 4Problem added automatically by system based on initiation of Fluid Volume Imbalance Plan of Care 512/07, 03/10, 01/09 6Problem added automatically by system based on initiation of Impaired Skin Integrity Plan of Care 7Problem added automatically by system based on initiation of Knowledge Deficit Plan of Care 812/07, 03/10, 01/09 9Problem added automatically by system based on initiation of Self Care Deficit Plan of Care 10Problem added automatically by system based on initiation of Tissue Perfusion Cerebral Plan of Care Allergies, Adverse Reactions, Alerts Substance Reaction Severity Status gabapentin Active Lyrica Active Medications acetaminophen 325 mg oral tablet 650 mg 2 tabs, Oral, q4hr, Fever, 0 Refill(s) Start Date: 08/17/15 Status: Ordered amLODIPine 10 mg, Oral, Daily, 0 Refill(s) Start Date: 09/11/14 Status: Ordered aspirin 81 mg, Oral, Daily, 0 Refill(s) Start Date: 09/11/14 Status: Ordered atorvastatin 40 mg oral tablet 1 tabs, Oral, Daily, # 30 tabs, 6 Refill(s), other reason (Rx) Start Date: 09/11/14 Status: Ordered calcitriol 0.5 mcg, Oral, MWF, 0 Refill(s) Start Date: 09/11/14 Status: Ordered Cipro 250 mg oral tablet 250 mg 1 tabs, Oral, q48hr, End date after dose on 09/22/15, 0 Refill(s) Start Date: 08/16/15 Status: Ordered darbepoetin jessica 100 mcg/0.5 mL injectable solution 100 mcg 0.5 mL, SubCutaneous, q7day, 0 Refill(s) Start Date: 08/17/15 Status: Ordered escitalopram 10 mg, Oral, Daily, 0 Refill(s) Start Date: 01/11/15 Status: Ordered insulin lispro 100 units/mL subcutaneous solution Sliding Scale Medium, SubCutaneous, As Indicated, Hyperglycemia/High Blood Sugar , 0 Refill(s) Start Date: 01/19/15 Status: Ordered insulin lispro 100 units/mL subcutaneous solution 18 units, SubCutaneous, TIDWM, 0 Refill(s) Start Date: 09/11/14 [...] 0 Refill(s) Start Date: 09/11/14 Status: Ordered [place] 5 mg-325 mg oral tablet 1 tabs, Oral, q4hr, Pain Moderate (4-6), not to exceed 10 tablets/24 hours; give with food to prevent nausea, # 30 tabs, 0 Refill(s) Start Date: 08/17/15 Stop Date: 09/17/15 Status: Ordered Plavix 75 mg, Oral, Daily, 0 Refill(s) Start Date: 09/11/14 Status: Ordered Renvela 800 mg oral tablet 1,600 mg 2 tabs, Oral, TID, # 90 tabs, 0 Refill(s) Start Date: 02/11/15 Status: Ordered SEROquel 150 mg, Oral, Daily, 0 Refill(s) Start Date: 08/11/15 Status: Ordered vancomycin 500 mg intravenous injection 500 mg, IV, Mon/We/Fr, End dose after doses of 09/22/15, # 1 vials, 0 Refill(s), other reason (Rx) Start Date: 08/16/15 Stop Date: 09/22/15 Status: Ordered Results Hematology Most recent to 1 oldest [Reference Range]: WBC [4.8-10.8 8.4 10*3/uL 10*3/uL] (08/17/15 6:20 AM) RBC [4.00-5.20] 3.26 *LOW* (08/17/15 6:20 AM) Hgb [12.0-16.0 9.7 gm/dL gm/dL] *LOW* (08/17/15 6:20 AM) Hct [37.0-47.0 %] 29.9 % *LOW* (08/17/15 6:20 AM) MCV [82.0-99.0 fL] 91.7 fL (08/17/15 6:20 AM) MCH [27.0-32.0 pg] 29.8 pg (08/17/15 6:20 AM) MCHC [32.0-36.0 32.4 gm/dL gm/dL] (08/17/15 6:20 AM) RDW [11.5-14.5 %] 14.5 % (08/17/15 6:20 AM) Platelet [150-400 189 10*3/uL 10*3/uL] (08/17/15 6:20 AM) MPV [9.4-12.4 fL] 9.8 fL (08/17/15 6:20 AM) Immature 0.9 % Granulocytes (08/16/15 8:37 AM) [0.0-1.0 %] Neutrophils [51-75 61 % %] (08/16/15 8:37 AM) Lymphocytes [20-46 19 % %] *LOW* (08/16/15 8:37 AM) Monocytes [4-11 %] 13 % *HI* (08/16/15 8:37 AM) Eosinophils [0-4 %] 6 % *HI* (08/16/15 8:37 AM) Basophils [0-2 %] 0 % (08/16/15 8:37 AM) Neutro Absolute 4.64 10*3 [1.90-7.00 10*3] (08/16/15 8:37 AM) Lymph Absolute 1.49 10*3 [0.80-3.30 10*3] (08/16/15 8:37 AM) Andrew Absolute 0.98 10*3 [0.30-1.00 10*3] (08/16/15 8:37 AM) Eos Absolute 0.46 10*3 [0.00-0.50 10*3] (08/16/15 8:37 AM) Baso Absolute 0.03 10*3 [0.00-0.20 10*3] (08/16/15 8:37 AM) Nucleated RBC 0.0 /100 WBC Automated [0 /100 (08/16/15 8:37 AM) WBC] Chemistry Most recent to 1 oldest [Reference Range]: Sodium Lvl [136-144 128 mEq/L mEq/L] *LOW* (08/17/15 6:20 AM) Potassium Lvl 4.4 mEq/L [3.6-5.1 mEq/L] (08/17/15 6:20 AM) Chloride [99-109 95 mEq/L mEq/L] *LOW* (08/17/15 6:20 AM) CO2 [22-32 mEq/L] 26 mEq/L (08/17/15 6:20 AM) AGAP [3-20] 7 (08/17/15 6:20 AM) BUN [4-20 mg/dL] 25 mg/dL *HI* (08/17/15 6:20 AM) Glucose Lvl [70-100 92 mg/dL mg/dL] (08/17/15 6:20 AM) Creatinine Lvl 4.37 mg/dL [0.44-1.03 mg/dL] *HI* (08/17/15 6:20 AM) eGFR [>60] 10 1 *ABN* (08/17/15 6:20 AM) Calcium Lvl 8.1 mg/dL [8.6-10.0 mg/dL] *LOW* (08/17/15 6:20 AM) Albumin Lvl [3.5-4.8 2.0 gm/dL gm/dL] *LOW* (08/16/15 8:37 AM) Total Protein 6.5 gm/dL [6.1-7.9 gm/dL] (08/14/15 7:28 AM) Globulin [1.9-4.3 4.2 gm/dL gm/dL] (08/14/15 7:28 AM) ALT [14-54 U/L] 7 U/L *LOW* (08/14/15 7:28 AM) AST [15-41 U/L] 16 U/L (08/14/15 7:28 AM) Alk Phos [26-104 127 U/L U/L] *HI* (08/14/15 7:28 AM) Bili Total [0.2-1.2 0.7 mg/dL 2 mg/dL] (08/14/15 7:28 AM) Phosphorus [2.4-4.7 7.0 mg/dL 3 mg/dL] *HI* (08/16/15 8:37 AM) Sodium Venous 132 mEq/L [136-144 mEq/L] *LOW* (08/11/15 8:35 AM) Potassium Venous 5.3 mEq/L 4 [3.6-5.1 mEq/L] *HI* (08/11/15 8:35 AM) Calcium Ionized 1.07 mmol/L Venous [1.19-1.41 *LOW* mmol/L] (08/11/15 8:35 AM) Total CO2 Venous 25 mEq/L [25-29 mEq/L] (08/11/15 8:35 AM) HGB Venous NPT 11.6 gm/dL [12.0-16.0 gm/dL] *LOW* (08/11/15 8:35 AM) HCT Venous 34.0 % [37.0-47.0 %] *LOW* (08/11/15 8:35 AM) Glucose Venous 240 mg/dL [70-100 mg/dL] *HI* (08/11/15 8:35 AM) BUN Venous [4-20] 61 *HI* (08/11/15 8:35 AM) Creatinine Venous 6.8 mg/dL [0.4-1.0 mg/dL] *HI* (08/11/15 8:35 AM) Venous CL [99-109 96 mEq/L mEq/L] *LOW* (08/11/15 8:35 AM) Anion Gap, [place] 11 [3-20] (08/11/15 8:35 AM) Blood Glucose, 131 mg/dL Capillary [70-100 *HI* mg/dL] (08/17/15 10:48 AM) Hep Bs Ag Negative (08/13/15 12:43 PM) 1Result Comment: Multiply eGFR results by 1.21 for race. 2Result Comment: Naproxen, specifically the metabolite O-desmethylnaproxen, may cause spurious elevation in Total Bilirubin levels. 3Result Comment: High dosages of liposomal Amphotericin B (AmBisome) therapy or other drug preparations that use a liposomal envelope to facilitate drug delivery may cause falsely elevated results for phosphorus. 4Result Comment: This test was performed on a whole blood specimen. The presence or absence of hemolysis cannot be assessed. Hemolysis can falsely elevate potassium levels. Normals are for venous specimens only. Therapeutic Drug Monitoring Most recent to 1 oldest [Reference Range]: Vancomycin Lvl 18.0 ug/mL [10.0-40.0 ug/mL] (08/17/15 6:20 AM) Blood Bank Results Most recent to 1 oldest [Reference Range]: ABO/Rh O POS (08/16/15 9:53 AM) Antibody Screen Tube NEG (08/16/15 9:53 AM) Microbiology Reports (Most Recent Ten) TEST: Tissue Culture and Smear STATUS: Auth (Verified) BODY SITE: SOURCE: Surgical-Tissue COLLECTED DATE/TIME: 08/11/15 12:40 PM Tissue Culture No growth TEST: Acid Fast Bacilli Culture and Smear STATUS: Order in Progress BODY SITE: SOURCE: Surgical-Tissue COLLECTED DATE/TIME: 08/11/15 12:40 PM Acid Fast Smear Only No acid fast bacilli seen TEST: Anaerobic Culture STATUS: Auth (Verified) BODY SITE: SOURCE: Surgical-Tissue COLLECTED DATE/TIME: 08/11/15 12:40 PM Anaerobic Culture No anaerobes isolated TEST: Fungus Culture & Calcofluor White Stain STATUS: Order in Progress BODY SITE: SOURCE: Surgical-Tissue COLLECTED DATE/TIME: 08/11/15 12:40 PM Calcofluor White Stain No fungal elements seen TEST: Wound Culture and Smear STATUS: Auth (Verified) BODY SITE: SOURCE: Surgical-Wound COLLECTED DATE/TIME: 08/11/15 10:20 AM Gram Smear Rare (0-1/OIF) white blood cells No microorganisms observed TEST: Fungus Culture & Calcofluor White Stain STATUS: Order in Progress BODY SITE: SOURCE: Surgical-Wound COLLECTED DATE/TIME: 08/11/15 10:20 AM Calcofluor White Stain No fungal elements seen TEST: Anaerobic Culture STATUS: Auth (Verified) BODY SITE: SOURCE: Surgical-Wound COLLECTED DATE/TIME: 08/11/15 10:20 AM Anaerobic Culture No anaerobes isolated TEST: Acid Fast Bacilli Culture and Smear STATUS: Order in Progress BODY SITE: SOURCE: Surgical-Wound COLLECTED DATE/TIME: 08/11/15 10:20 AM Acid Fast Smear Only No acid fast bacilli seen TEST: Tissue Culture and Smear STATUS: Auth (Verified) BODY SITE: SOURCE: Surgical-Tissue COLLECTED DATE/TIME: 08/11/15 10:18 AM Gram Smear Rare (0-1/OIF) white blood cells No microorganisms observed TEST: Anaerobic Culture STATUS: Auth (Verified) BODY SITE: SOURCE: Surgical-Tissue COLLECTED DATE/TIME: 08/11/15 10:18 AM Anaerobic Culture No anaerobes isolated Immunizations Vaccine Date Refusal Reason tetanus-diphth toxoids (Td) adult/adol 04/08/03 Procedures Procedure Date Related Diagnosis Body Site Removal Hardware Extremity Lower (Right)1 08/11/15 Open Reduction Internal Fixation Femur Distal 01/12/15 with Intramedullary Nail (Right)2 Adenoidectomy Anesthesia for vaginal hysterectomy Cholecystocecostomy Closure of arterial graft-enteric fistula Decompression laminectomy of lumbar spine Hysterectomy3 Tonsillectomy 1auto-populated from documented surgical case 2auto-populated from documented surgical case 3w/out BSO, due to bleeding Social History Social History Type Response Smoking Status Never smoker Assessment and Plan No data available for this section
--- OUTSIDE RECORDS SUMMARY | 2016-12-01 11:47 | XMS REPORT ---
Author Author Beverley Crooks [facility] eClinicalWorks Address Unknown Phone Unavailable Care Team Providers Care Automobile Upholstery Trim Installer Name Role Phone Beverley Crooks CP Unavailable Allergies, Adverse Reactions, Alerts Substance Reaction Event Type Neurontin hives, rash Drug Allergy Lyrica Suicidality Drug Allergy Problems Problem Type Condition Code Onset Dates Condition Status Assessment Chronic pain syndrome G89.4 Active Assessment Hepatomegaly R16.0 Active Assessment Hepatic steatosis K76.0 Active Problem Chronic pain syndrome 338.4 Active Assessment Chronic kidney disease, stage 4 (severe) N18.4 Active Problem Major depressive disorder, single episode, unspecified F32.9 Active Problem Chronic kidney disease, Stage IV (severe) 585.4 Active Problem Chronic pain syndrome G89.4 Active Problem 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.359 Active Problem Hypothyroidism, unspecified E03.9 Active Problem Pure hypercholesterolemia E78.0 Active Problem Essential (primary) hypertension I10 Active Problem Pure hypercholesterolemia 272.0 Active Problem 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 Problem Hepatic steatosis K76.0 Active Problem Unspecified essential hypertension 401.9 Active Problem Chronic kidney disease, stage 4 (severe) N18.4 Active Problem 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 Problem Diabetes mellitus due to underlying condition with diabetic neuropathy , unspecified E08.40 Active Problem Type 2 diabetes mellitus with hyperglycemia E11.65 Active Problem Sarcoidosis 135 Active Problem Coronary atherosclerosis of [place] coronary artery 414.01 Active Problem Diabetes mellitus without mention of complication, type II or unspecified type, uncontrolled 250.02 Active Problem Polyneuropathy in diabetes 357.2 Active Problem Renal dialysis status V45.11 Active Problem Depressive disorder, not elsewhere classified 311 Active Problem Hypothyroid 244.9 Active Problem Proliferative diabetic retinopathy 362.02 Active Medications Medication Code System Code Instructions Start Date End Date Status Dosage Nitrostat [facility] [address]-88 0.4 MG Sublingual max 3 doses 1 tablet under the tongue, may repeat every 5 min x3 then call 911 Cholecalciferol [facility] [address]-65 1000 UNIT Orally Once a day 2 tablets Plavix [facility] [address]-61 75 MG Orally Once a day 1 tablet [place] [facility] [address]-81 10-325 MG Orally every 6 hrs, May fill 03-17-. November 17, 2015 Apr 13, 2016 1 tablet as needed Seroquel [facility] [address]-44 200 MG Orally Once a day 1 tablet at bedtime Blood Glucose Meter [facility] 0 1 as directed. Dispense lancets and test strips dx , 250.02. Patient with low vision, needs large-number meter or talking meter TID , Jul 16, 2014 1, OneTouch Delica Lancets [facility] [address]-20 none subcutaneous Three times a day Jul 16, 2015 as directed (dx E11.65) Lantus SoloStar [facility] [address]-14 100 UNIT/ML Subcutaneous Once a day December 17, 2013 85 units OneTouch Ultra Blue test strips [facility] [id number] none in vitro Dx. E11.65 three times daily May 03, 2019 as directed Amlodipine Besylate [facility] [address]-92 10 MG Orally Twice every day 1 tablet Atorvastatin Calcium [facility] [address]-74 40 MG Orally Once a day 1 tablet Trazodone HCl [facility] [address]-63 100 MG Orally 1/2 - 1 tab once a day November 22, 2015 1 tablet at bedtime Lisinopril [facility] 05753076115 20 Orally Once a day 1 tablet Omeprazole [facility] [address]-63 20 MG Orally BID x1 month then QD Jul 04, 2016 1 capsule Trazodone HCl [facility] 82787862583 100 TAKE ONE-HALF TO ONE TABLET BY MOUTH DAILY EVERY NIGHT AT BEDTIME Escitalopram Oxalate [facility] [address]-13 10 MG Orally Once a day 1 tablet Lisinopril [facility] [address]-68 20 MG Orally Once a day 1 tablet Metoprolol Tartrate [facility] [address]-77 50 MG Orally Twice a day Oct 10, 2012 1 tablet Fluticasone Propionate [facility] [address]-00 50 MCG/ACT Nasally Once a day December 22, 2015 1 spray in each nostril [employer] [place] [facility] [address] 31G X 8 MM 4 times every day May 18, 2014 as directed Aspirin [facility] [address]-10 81 mg Orally Once a day 1 tablet Renvela [facility] [address]-23 800 MG Orally Three times a day 2 tablets with meals NovoLog Flexpen [facility] [address]-63 100 UNIT/ML Subcutaneous Three times a day Jul 16, 2015 28 with breakfast and lunch and 30 units with supper Procedures Procedure Coding System Code Date OFFICE VISIT, EST-LOW COMPLEXITY (15 MIN.) CPT-4 98097 Aug 02, 2016 [facility] visit Established Patient CPT-4 G0467 Aug 02, 2016 Vital Signs Date/Time: Aug 02, 2016 Temperature 98.3 F Height 62.5 in Weight 255 lbs Blood Pressure Diastolic 74 mm Hg Blood Pressure Systolic 134 mm Hg Cardiac Monitoring Heart Rate 67 /min BMI 45.89 Index Oximetry 92 % Results No Known Results Summary Purpose eClinicalWorks Submission
--- OUTSIDE RECORDS SUMMARY | 2016-12-01 11:47 | XMS REPORT ---
Author Author Shaila Jolly [facility] Address [address] [id number] Care Team Providers Care Glove Cleaner Name Role Phone Shaila Jolly Unavailable [phone] PROBLEMS Type Condition ICD9-CM Code GQG78-BI Code Onset Dates Condition Status SNOMED Code Problem Generalized abdominal pain R10.84 Active 995664049 Problem Pharyngoesophageal dysphagia R13.14 Active 56199534 Problem Elevated liver enzymes R74.8 Active 888313903 Problem Diarrhea, unspecified type R19.7 Active 13251258 Problem Nausea R11.0 Active 291037218 Problem Elevated ferritin level R79.89 Active 149632952 Problem Gastroesophageal reflux disease, esophagitis presence not specified K21.9 Active 630088555 Problem Adenomatous polyp of colon, unspecified part of colon D12.6 Active 105273938 Problem Colitis K52.9 Active 84608915 Problem Schatzki's ring K22.2 Active 911319790 Problem Hiatal hernia K44.9 Active 72769375 ALLERGIES Unknown Allergies SOCIAL HISTORY No smoking Hx information available PLAN OF CARE VITAL SIGNS MEDICATIONS Unknown Medications RESULTS No Results PROCEDURES No Known procedures IMMUNIZATIONS No Known Immunizations
--- OUTSIDE RECORDS SUMMARY | 2016-12-01 11:47 | XMS REPORT ---
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 250.02 three times daily November 02, 2014 as directed Results No Known Results Summary Purpose eClinicalWorks Submission
--- OUTSIDE RECORDS SUMMARY | 2016-12-01 11:47 | XMS REPORT | Referral Summary ---
Author Organization Unknown Address Unknown Phone Unavailable Care Team Providers Care Optical Instrument Inspector Name Role Phone Zulay Ambrocio Primary Care Physician [phone] Encounter VC Date(s): 09/11/14 - 09/15/[address] [id number] Discharge Disposition: Home or Self Care Attending Physician: Mich Brasher MD Admitting Physician: Mich Brasher MD Vital Signs Most recent to 1 oldest [Reference Range]: Temperature Axillary 36.8 degC [35.2-36.7 degC] *HI* (09/13/14 8:00 PM) Temperature Oral 36.9 degC [35.8-37.3 degC] (09/15/14 8:00 AM) Peripheral Pulse 69 bpm Rate [60-100 bpm] (09/15/14 8:00 AM) Heart Rate Monitored 76 bpm [60-100 bpm] (09/11/14 12:23 PM) Respiratory Rate 18 br/min [14-20 br/min] (09/15/14 8:00 AM) Blood Pressure 173/79 mmHg [90-140/60-90 mmHg] *HI* (09/15/14 8:00 AM) Most recent to 1 oldest [Reference Range]: SpO2 95 % (09/15/14 8:00 AM) Problem List Condition Effective Dates Status Health Status Informant Acute chest Active patient pain(Confirmed) Fluid Active imbalance(Confirmed) 1 Tissue perfusion Active alteration(Confirmed )2 1Problem added automatically by system based on initiation of Fluid Volume Imbalance Plan of Care 2Problem added automatically by [...] 0 Refill(s) Start Date: 09/11/14 Status: Ordered Cymbalta 90 mg, Oral, Daily, 0 Refill(s) Start Date: 09/11/14 Status: Ordered insulin lispro 100 units/mL subcutaneous [...] medical attention, # 100 tabs, 0 Refill(s) Special Instructions: not to exceed 3 doses/15 min--if pain persists, seek medical attention Start Date: 09/11/14 Status: Ordered [place] 7.5 mg-325 mg oral tablet 1 tabs, Oral, TID, as needed for pain, 0 Refill(s) Start Date: 09/11/14 Status: Ordered Plavix 75 mg, Oral, Daily, 0 Refill(s) Start Date: 09/11/14 Status: Ordered SEROquel 150 mg, Oral, Bedtime (once a day), 0 Refill(s) Start Date: 09/11/14 Status: Ordered Results Hematology Most recent to 1 oldest [Reference Range]: WBC [4.8-10.8 K/uL] 8.9 K/uL (09/15/14 5:42 AM) RBC [4.00-5.20 M/uL] 3.26 M/uL *LOW* (09/15/14 5:42 AM) Hgb [12.0-16.0 10.3 gm/dL gm/dL] *LOW* (09/15/14 5:42 AM) Hct [37.0-47.0 %] 30.2 % *LOW* (09/15/14 5:42 AM) MCV [82.0-99.0 fL] 92.6 fL (09/15/14 5:42 AM) MCH [27.0-32.0 pg] 31.6 pg (09/15/14 5:42 AM) MCHC [32.0-36.0 34.1 gm/dL gm/dL] (09/15/14 5:42 AM) RDW [11.5-14.5 %] 13.5 % (09/15/14 5:42 AM) Platelet [150-400 205 K/uL K/uL] (09/15/14 5:42 AM) MPV [9.4-12.4 fL] 10.6 fL (09/15/14 5:42 AM) Immature 0.3 % Granulocytes (09/11/14 4:01 PM) [0.0-1.0 %] Neutrophils [51-75 65 % %] (09/11/14 4:01 PM) Lymphocytes [20-46 22 % %] (09/11/14 4:01 PM) Monocytes [4-11 %] 7 % (09/11/14 4:01 PM) Eosinophils [0-4 %] 5 % *HI* (09/11/14 4:01 PM) Basophils [0-2 %] 1 % (09/11/14 4:01 PM) Neutro Absolute 4.15 THOUS [1.90-7.00 THOUS] (09/11/14 4:01 PM) Lymph Absolute 1.41 THOUS [0.80-3.30 THOUS] (09/11/14 4:01 PM) [place] Absolute 0.43 THOUS [0.30-1.00 THOUS] (09/11/14 4:01 PM) Eos Absolute 0.33 THOUS [0.00-0.50 THOUS] (09/11/14 4:01 PM) Baso Absolute 0.04 THOUS [0.00-0.20 THOUS] (09/11/14 4:01 PM) Coagulation Most recent to 1 oldest [Reference Range]: INR [0.9-1.2] 1.5 *HI* (09/15/14 5:41 AM) Chemistry Most recent to 1 oldest [Reference Range]: Sodium Lvl [136-144 133 mEq/L mEq/L] *LOW* (09/15/14 5:42 AM) Potassium Lvl 4.7 mEq/L [3.6-5.1 mEq/L] (09/15/14 5:42 AM) Chloride [99-109 97 mEq/L mEq/L] *LOW* (09/15/14 5:42 AM) CO2 [22-32 mEq/L] 27 mEq/L (09/15/14 5:42 AM) AGAP [3-20] 9 (09/15/14 5:42 AM) BUN [4-20 mg/dL] 19 mg/dL (09/15/14 5:42 AM) Glucose Lvl [70-100 139 mg/dL mg/dL] *HI* (09/15/14 5:42 AM) Creatinine Lvl 5.06 mg/dL [0.44-1.03 mg/dL] *HI* (09/15/14 5:42 AM) eGFR [>60] 9 3 *ABN* (09/15/14 5:42 AM) Calcium Lvl 7.7 mg/dL [8.6-10.0 mg/dL] *LOW* (09/15/14 5:42 AM) Albumin Lvl [3.5-4.8 3.0 gm/dL gm/dL] *LOW* (09/12/14 6:48 AM) Total Protein 6.8 gm/dL [6.1-7.9 gm/dL] (09/12/14 6:48 AM) Globulin [1.9-4.3 3.8 gm/dL gm/dL] (09/12/14 6:48 AM) ALT [14-54 unit/L] 15 unit/L (09/12/14 6:48 AM) AST [15-41 unit/L] 19 unit/L (09/12/14 6:48 AM) Alk Phos [26-104 118 unit/L unit/L] *HI* (09/12/14 6:48 AM) Bili Total [0.2-1.2 0.7 mg/dL 2 mg/dL] (09/12/14 6:48 AM) Magnesium Lvl 2.1 mg/dL [1.8-2.5 mg/dL] (09/12/14 6:48 AM) Phosphorus [2.4-4.7 5.5 mg/dL 1 mg/dL] *HI* (09/11/14 4:01 PM) Blood Glucose, 144 mg/dL Capillary [70-100 *HI* mg/dL] (09/15/14 6:40 AM) Chol [0-200 mg/dL] 152 mg/dL (09/12/14 6:48 AM) Trig [0-150 mg/dL] 142 mg/dL (09/12/14 6:48 AM) HDL [>40 mg/dL] 42 mg/dL (09/12/14 6:48 AM) LDL [0-100 mg/dL] 82 mg/dL (09/12/14 6:48 AM) VLDL Cholesterol 28 mg/dL [0-30 mg/dL] (09/12/14 6:48 AM) Cardiac Risk 3.6 [0.0-5.0] (09/12/14 6:48 AM) TSH with Reflex Free 1.76 T4 [0.35-5.50] (09/12/14 6:48 AM) 1Result Comment: High dosages of liposomal Amphotericin B (AmBisome) therapy or other drug preparations that use a liposomal envelope to facilitate drug delivery may cause falsely elevated results for phosphorus. 2Result Comment: Naproxen, specifically the metabolite O-desmethylnaproxen, may cause spurious elevation in Total Bilirubin levels. 3Result Comment: Multiply eGFR results by 1.21 for race. Immunizations No data available for this section Procedures Procedure Date Related Diagnosis Body Site Anesthesia for vaginal hysterectomy Cholecystocecostomy Closure of arterial graft-enteric fistula Decompression laminectomy of lumbar spine Tonsillectomy Social History No data available for this section Assessment and Plan No data available for this section
--- OUTSIDE RECORDS SUMMARY | 2016-12-01 11:47 | XMS REPORT ---
Author Author Beverley Crooks eClinicalWorks Address Unknown Phone Unavailable Care Team Providers Care Licensed Sales Assistant Name Role Phone Beverley Crooks CP Unavailable Allergies, Adverse Reactions, Alerts Substance Reaction Event Type Neurontin hives, rash Drug Allergy Lyrica Suicidality Drug Allergy Problems Problem Type Condition Code Onset Dates Condition Status Assessment Right upper quadrant abdominal pain R10.11 Active Assessment Major depressive disorder, single episode, unspecified F32.9 Active Assessment Chronic pain syndrome G89.4 Active Assessment Hypothyroidism, unspecified E03.9 Active Assessment 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 Assessment Diabetes mellitus due to underlying condition with diabetic neuropathy, unspecified E08.40 Active Assessment Chronic kidney disease, stage 4 (severe) N18.4 Active Assessment Essential (primary) hypertension I10 Active Problem Depressive disorder, not elsewhere classified 311 Active Assessment Pure hypercholesterolemia E78.0 Active Problem Chronic pain syndrome 338.4 Active Assessment Type 2 diabetes mellitus with hyperglycemia E11.65 Active Problem Major depressive disorder, single episode, unspecified F32.9 Active Problem Hypothyroidism, unspecified E03.9 Active Problem Chronic pain syndrome G89.4 Active Problem Essential (primary) hypertension I10 Active Problem Diabetes mellitus due to underlying condition with diabetic neuropathy , unspecified E08.40 Active Problem 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 November 17, 2015 Apr 13, 2016 1 tablet as needed Lantus [place] [facility] [address]-99 100 UNIT/ML Subcutaneous Once a day December 17, 2013 85 units Aspirin [facility] [address]-78 81 mg Orally Once a day 1 tablet Seroquel [facility] [address]-37 200 MG Orally Once a day 1 tablet at bedtime Amlodipine Besylate [facility] [address]-57 10 MG Orally Twice every day 1 tablet Fluticasone Propionate [facility] [address]-65 50 MCG/ACT Nasally Once a day December 22, 2015 1 spray in each nostril [employer] [place] [facility] [address] 31G X 8 MM 4 times every day May 18, 2014 as directed OneTouch Ultra Blue test strips [facility] 82057623345 none in vitro Dx. E11.65 three times daily May 03, 2019 as directed Cholecalciferol [facility] [address]-37 1000 UNIT Orally Once a day 2 tablets Escitalopram Oxalate [facility] [address]-74 10 MG Orally Once a day 1 tablet Metoprolol Tartrate [facility] [address]-12 50 MG Orally Twice a day Oct 10, 2012 1 tablet Trazodone HCl [facility] 10585474009 100 TAKE ONE-HALF TO ONE TABLET BY MOUTH DAILY EVERY NIGHT AT BEDTIME Renvela [facility] [address]-39 800 MG Orally Three times a day 2 tablets with meals OneTouch Delica Lancets [facility] [address]-52 none subcutaneous Three times a day Jul 16, 2015 as directed (dx E11.65) Plavix [facility] [address]-28 75 MG Orally Once a day 1 tablet Nitrostat [facility] [address]-73 0.4 MG Sublingual max 3 doses 1 tablet under the tongue, may repeat every 5 min x3 then call 911 Blood Glucose Meter [facility] 0 1 as directed. Dispense lancets and test strips dx , 250.02. Patient with low vision, needs large-number meter or talking meter TID , Jul 16, 2014 1, Lisinopril [facility] [address]-66 20 MG Orally Once a day 1 tablet NovoLog Flexpen [facility] [address]-80 100 UNIT/ML Subcutaneous Three times a day Jul 16, 2015 28 with breakfast and lunch and 30 units with supper Atorvastatin Calcium [facility] [address]-50 40 MG Orally Once a day 1 tablet Trazodone HCl [facility] [address]-90 100 MG Orally 1/2 - 1 tab once a day November 22, 2015 1 tablet at bedtime Procedures Procedure Coding System Code Date [facility] visit Established Patient CPT-4 G0467 May 18, 2016 OFFICE VISIT, EST-LOW COMPLEXITY (15 MIN.) CPT-4 66784 May 18, 2016 HEMOGLOBIN A1C, IN HOUSE CPT-4 65177 May 18, 2016 Vital Signs Date/Time: May 18, 2016 Temperature 98.5 F Height 62.5 in Weight 258 lbs Blood Pressure Diastolic 98 mm Hg Blood Pressure Systolic 172 mm Hg Cardiac Monitoring Heart Rate 82 /min BMI 46.43 Index Oximetry 98 % Respiratory Rate 16 /min Results Name Result Date Reference Range Unit Abnormality Flag In House HB A1c ----Hemoglobin A1c 9.5 [id number] Summary Purpose eClinicalWorks Submission
--- OUTSIDE RECORDS SUMMARY | 2016-12-01 11:47 | XMS REPORT ---
Author Author Beverley Crooks [facility] eClinicalWorks Address Unknown Phone Unavailable Care Team Providers Care Traffic Superintendent Name Role Phone Beverley Crooks CP Unavailable [...] status V45.11 Active Problem Coronary atherosclerosis of [place] coronary artery 414.01 Active Problem Depressive disorder, not elsewhere classified 311 Active Assessment Impacted cerumen of both ears H61.23 Active Problem Hypothyroid 244.9 Active Problem Chronic pain syndrome 338.4 Active Medications Medication Code System Code Instructions Start Date End Date Status Dosage Escitalopram Oxalate [facility] [address]-04 10 MG Orally Once a day 1 tablet Trazodone HCl [facility] 47639988381 100 TAKE ONE-HALF TO ONE TABLET BY MOUTH DAILY EVERY NIGHT AT BEDTIME OneTouch Ultra Blue test strips [facility] 17390442614 none in vitro Dx. E11.65 three times daily May 03, 2019 as directed Nitrostat [facility] [address]-90 0.4 MG Sublingual max 3 doses 1 tablet under the tongue, may repeat every 5 min x3 then call 911 Aspirin [facility] [address]-91 81 mg Orally Once a day 1 tablet [employer] [place] [facility] [address] 31G X 8 MM 4 times every day May 18, 2014 as directed Metoprolol Tartrate [facility] [address]-37 50 MG Orally Twice a day Oct 10, 2012 1 tablet Fluticasone Propionate [facility] [address]-81 50 MCG/ACT Nasally Once a day December 22, 2015 1 spray in each nostril Lantus SoloStar [facility] [address]-39 100 UNIT/ML Subcutaneous Once a day December 17, 2013 85 units Blood Glucose Meter [facility] 0 1 as directed. Dispense lancets and test strips dx , 250.02. Patient with low vision, needs large-number meter or talking meter TID , Jul 16, 2014 1, Renvela [facility] [address]-34 800 MG Orally Three times a day 2 tablets with meals Trazodone HCl [facility] [address]-98 100 MG Orally 1/2 - 1 tab once a day November 22, 2015 1 tablet at bedtime Lisinopril [facility] [address]-69 20 MG Orally Once a day 1 tablet Atorvastatin Calcium [facility] [address]-81 40 MG Orally Once a day 1 tablet NovoLog Flexpen [facility] [address]-14 100 UNIT/ML Subcutaneous Three times a day Jul 16, 2015 28 with breakfast and lunch and 30 units with supper Amlodipine Besylate [facility] [address]-94 10 MG Orally Twice every day 1 tablet OneTouch Delica Lancets [facility] [address]-11 none subcutaneous Three times a day Jul 16, 2015 as directed (dx E11.65) Plavix [facility] [address]-55 75 MG Orally Once a day 1 tablet Cholecalciferol [facility] [address]-31 1000 UNIT Orally Once a day 2 tablets Seroquel [facility] [address]-31 200 MG Orally Once a day 1 tablet at bedtime Procedures Procedure Coding System Code Date OFFICE VISIT, EST-LOW COMPLEXITY (15 MIN.) CPT-4 12428 Jun 07, 2016 [facility] visit Established Patient CPT-4 G0467 Jun 07, 2016 Vital Signs Date/Time: Jun 07, 2016 Cardiac Monitoring Heart Rate 78 /min Temperature 98.2 F Height 62.5 in Respiratory Rate 18 /min Blood Pressure Diastolic 60 mm Hg Blood Pressure Systolic 116 mm Hg Results No Known Results Summary Purpose eClinicalWorks Submission
--- OUTSIDE RECORDS SUMMARY | 2016-12-01 11:47 | XMS REPORT ---
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
--- OUTSIDE RECORDS SUMMARY | 2016-12-01 11:47 | XMS REPORT ---
Author Author Beverley Crooks Organization eClinicalWorks Address Unknown Phone Unavailable Care Team Providers Care Import/Export Agent Name Role Phone Beverley Crooks CP Unavailable [...] Sarcoidosis 135 Active Problem Coronary atherosclerosis of [place] coronary artery 414.01 Active Problem Diabetes mellitus without mention of complication, type II or unspecified type, uncontrolled 250.02 Active Problem Hypothyroid 244.9 Active Problem Polyneuropathy in diabetes 357.2 Active Problem Proliferative diabetic retinopathy 362.02 Active Medications Medication Code System Code Instructions Start Date End Date Status Dosage [facility] [address]-91 10-325 MG Orally every 6 hrs November 17, 2015January 1 tablet as needed Results No Known Results Summary Purpose eClinicalWorks Submission
--- OUTSIDE RECORDS SUMMARY | 2016-12-01 11:47 | XMS REPORT ---
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
--- OUTSIDE RECORDS SUMMARY | 2016-12-01 11:47 | XMS REPORT | Referral Summary ---
Author Author [facility], Trauma Surgery Organization [facility], Trauma Surgery Address Unknown Phone Unavailable Care Team Providers Care Paper Cone Drying Machine Operator Name Role Phone Miguel Crooksfany Primary Care Physician [phone] Encounter Date(s): 02/11/15 - 02/11/15 [facility], Trauma Surgery [address], [place] [address] Discharge Disposition: 01-Home or Self Care Attending Physician: Annalise Sanders MD Admitting Physician: Annalise Sanders MD Vital Signs Most recent to 1 oldest [Reference Range]: Temperature Oral 36.7 degC [35.8-37.3 degC] (02/11/15 12:30 PM) Peripheral Pulse 59 bpm Rate [60-100 bpm] *LOW* (02/11/15 12:30 PM) Respiratory Rate 16 br/min [14-20 br/min] (02/11/15 12:30 PM) Blood Pressure 182/62 mmHg [90-140/60-90 mmHg] *HI* (02/11/15 12:30 PM) SpO2 96 % (02/11/15 12:30 PM) Problem List Condition Effective Dates Status Health [...] integrity(Confirmed) 6 Knowledge Active deficit(Confirmed)7 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 ) Mixed [...] 0 Refill(s) Start Date: 09/11/14 Status: Ordered [place] 5 mg-325 mg oral tablet 1 tabs, Oral, q4hr, Pain Moderate (4-6), not to exceed 10 tablets/24 hours; give with food to prevent nausea, # 30 tabs, 0 Refill(s) Start Date: 08/23/15 Stop Date: 08/23/16 Status: Ordered Plavix 75 mg, Oral, Daily, 0 Refill(s) Start Date: 09/11/14 Status: Ordered Renvela 800 mg oral tablet 1,600 mg 2 tabs, Oral, TID, # 90 tabs, 0 Refill(s) Start Date: 02/11/15 Status: Ordered SEROquel 150 mg, Oral, Daily, 0 Refill(s) Start Date: 08/11/15 Status: Ordered vancomycin 500 mg intravenous injection 500 mg, IV, Sun//, End dose after doses of 09/22/15, # 1 vials, 0 Refill(s), other reason (Rx) Start Date: 08/16/15 Stop Date: 09/22/15 Status: Ordered Results No data available for this section Immunizations Vaccine Date Refusal Reason tetanus-diphth toxoids [...] Smoking Status Never smoker Assessment and Plan Extracted from: Title: Office Visit Note Author: Ganesh Crow MD Date: 02/11/15 Assessment/Plan 59 year old female S/p fall with comminuted right femur fracture S/p ORIF with IMN by ortho Doing well. Pain controlled. Saw Dr. Beard today, and activity has been advanced. No new concerns today. Instructed to continue to follow up with ortho. Discharged from Trauma clinic. Instructed to call with any concerns/ questions. Patient was discussed with Dr. Sanders who is in agreement with plan of care I discussed the patient with the Resident/CERAMIC PAINTER/PA/RN/PharmD, reviewed the chart , and concur with the assessment and plan as above.
--- OUTSIDE RECORDS SUMMARY | 2016-12-01 11:47 | XMS REPORT ---
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
--- OUTSIDE RECORDS SUMMARY | 2016-12-01 11:47 | XMS REPORT ---
Author Author Beverley Crooks [employer] Address Unknown Phone Unavailable Care Team Providers Care [facility] Shift Lead Name Role Phone Beverley Crooks CP Unavailable Allergies, Adverse Reactions, Alerts Substance Reaction Event Type Neurontin hives, rash Drug Allergy Lyrica Suicidality Drug Allergy Problems Problem Type Condition Code Onset Dates Condition Status Problem Renal dialysis status V45.11 Active Problem Chronic pain syndrome 338.4 Active Problem Depressive disorder, not elsewhere classified 311 Active Problem Chronic kidney disease, stage 4 (severe) N18.4 Active Assessment Otitis media, unspecified, right ear H66.91 Active Problem 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 Assessment Allergic rhinitis, unspecified J30.9 Active Problem Type 2 diabetes mellitus with [...] Sarcoidosis 135 Active Problem Coronary atherosclerosis of [place] coronary artery 414.01 Active Problem Diabetes mellitus without mention of complication, type II or unspecified type, uncontrolled 250.02 Active Problem Hypothyroid 244.9 Active Problem Polyneuropathy in diabetes 357.2 Active Problem Proliferative diabetic retinopathy 362.02 Active Medications Medication Code System Code Instructions Start Date End Date Status Dosage Aspirin [facility] [address]-53 81 mg Orally Once a day 1 tablet Nitrostat [facility] [address]-18 0.4 MG Sublingual max 3 doses 1 tablet under the tongue, may repeat every 5 min x3 then call 911 Amlodipine Besylate [facility] [address]-15 10 MG Orally Twice every day 1 tablet Renvela [facility] [address]-77 800 MG Orally Three times a day 2 tablets with meals Seroquel [facility] [address]-42 200 MG Orally Once a day 1 tablet at bedtime NovoLog Flexpen [facility] [address]-87 100 UNIT/ML Subcutaneous Three times a day Jul 16, 2015 36 units with meals Plavix [facility] [address]-43 75 MG Orally Once a day 1 tablet Metoprolol Tartrate [facility] [address]-93 50 MG Orally Twice a day Oct 10, 2012 1 tablet OneTouch Delica Lancets [facility] [address]-60 none subcutaneous Three times a day Jul 16, 2015 as directed (dx E11.65) [place] [facility] [address]-45 10-325 MG Orally every 6 hrs November 17, 2015January 1 tablet as needed Escitalopram Oxalate [facility] [address]-77 10 MG Orally Once a day 1 tablet Blood Glucose Meter [facility] 0 1 as directed. Dispense lancets and test strips dx , 250.02. Patient with low vision, needs large-number meter or talking meter TID , Jul 16, 2014 1, [employer] [place] [facility] [address]347 31G X 8 MM 4 times every day May 18, 2014 as directed Lisinopril [facility] [address]-57 20 MG Orally Once a day 1 tablet Atorvastatin Calcium [facility] [address]-91 40 MG Orally Once a day 1 tablet OneTouch Ultra Blue test strips [facility] 28182447596 none in vitro Dx. E11.65 three times daily as directed Lantus SoloStar [facility] [address]-00 100 UNIT/ML Subcutaneous Once a day December 17, 2013 85 units Amoxicillin [facility] [address]-82 500 MG Orally every 12 hrs December 22, 2015 January 01, 2016 1 capsule Cholecalciferol [facility] [address]-96 1000 UNIT Orally Once a day 2 tablets Fluticasone Propionate [facility] [address]-54 50 MCG/ACT Nasally Once a day December 22, 2015 1 spray in each nostril Trazodone HCl [facility] [address]-13 100 MG Orally 1/2 - 1 tab once a day November 22, 2015 1 tablet at bedtime Procedures Procedure Coding System Code Date OFFICE VISIT, EST-LOW COMPLEXITY (15 MIN.) CPT-4 29012 December 22, 2015 [facility] visit Established Patient CPT-4 G0467 December 22, 2015 Vital Signs Date/Time: December 22, 2015 Temperature 98.4 F Height 62.5 in Weight 247.4 lbs Blood Pressure Diastolic 60 mm Hg Blood Pressure Systolic 120 mm Hg Cardiac Monitoring Heart Rate 79 /min BMI 44.52 Index Respiratory Rate 16 /min Results No Known Results Summary Purpose eClinicalWorks Submission
--- OUTSIDE RECORDS SUMMARY | 2016-12-01 11:48 | XMS REPORT ---
Author Author Beverley Crooks eClinical[employer] Address Unknown Phone Unavailable Care Team Providers Care Continuous Still Operator Name Role Phone Beverley Crooks CP [...] disease, stage 4 (severe) N18.4 Active Assessment Loss of hearing, right H91.91 Active Problem 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 Assessment Trigger middle finger of right hand M65.331 Active Assessment Chronic pain syndrome G89.4 Active Problem Type 2 diabetes mellitus with [...] Sarcoidosis 135 Active Problem Coronary atherosclerosis of [place] coronary artery 414.01 Active Problem Diabetes mellitus without mention of complication, type II or unspecified type, uncontrolled 250.02 Active Problem Hypothyroid 244.9 Active Problem Polyneuropathy in diabetes 357.2 Active Problem Proliferative diabetic retinopathy 362.02 Active Medications Medication Code System Code Instructions Start Date End Date Status Dosage Escitalopram Oxalate [facility] [address]-31 10 MG Orally Once a day 1 tablet Plavix [facility] [address]-67 75 MG Orally Once a day 1 tablet Metoprolol Tartrate [facility] [address]-72 50 MG Orally Twice a day Oct 10, 2012 1 tablet NovoLog Flexpen [facility] [address]-05 100 UNIT/ML Subcutaneous Three times a day Jul 16, 2015 36 units with meals Seroquel [facility] [address]-19 200 MG Orally Once a day 1 tablet at bedtime Trazodone HCl [facility] 79529287251 100 Orally 1/2 - 1 tab once a day 1 tablet at bedtime Cholecalciferol [facility] [address]-99 1000 UNIT Orally Once a day 2 tablets Blood Glucose Meter [facility] 0 1 as directed. Dispense lancets and test strips dx , 250.02. Patient with low vision, needs large-number meter or talking meter TID , Jul 16, 2014 1, Lisinopril [facility] [address]-28 20 MG Orally Once a day 1 tablet Trazodone HCl [facility] [address]-14 100 MG Orally 1/2 - 1 tab once a day November 22, 2015 1 tablet at bedtime Lantus SoloStar [facility] [address]-85 100 UNIT/ML Subcutaneous Once a day December 17, 2013 85 units OneTouch Delica Lancets [facility] [address]-29 none subcutaneous Three times a day Jul 16, 2015 as directed (dx E11.65) Renvela [facility] [address]-58 800 MG Orally Three times a day 2 tablets with meals Aspirin [facility] [address]-63 81 mg Orally Once a day 1 tablet [place] [facility] [address]-70 10-325 MG Orally every 6 hrs November 17, 2015 March 16, 2016 1 tablet as needed Atorvastatin Calcium [facility] [address]-58 40 MG Orally Once a day 1 tablet OneTouch Ultra Blue test strips [facility] 43207035577 none in vitro Dx. E11.65 three times daily as directed Nitrostat [facility] [address]-67 0.4 MG Sublingual max 3 doses 1 tablet under the tongue, may repeat every 5 min x3 then call 911 Fluticasone Propionate [facility] [address]-11 50 MCG/ACT Nasally Once a day December 22, 2015 1 spray in each nostril Amlodipine Besylate [facility] [address]-95 10 MG Orally Twice every day 1 tablet [employer] [place] [facility] [address] 31G X 8 MM 4 times every day May 18, 2014 as directed Procedures Procedure Coding System Code Date INJECTION (plus drug) CPT-4 32605 February 15, 2016 Lidocaine injection CPT-4 J2001 February 15, 2016 KENALOG 40MG CPT-4 J3301 February 15, 2016 OFFICE VISIT, EST-LOW COMPLEXITY (15 MIN.) CPT-4 13680 February 15, 2016 [facility] visit Established Patient CPT-4 G0467 February 15, 2016 INJ TENDON SHEATH/LIGAMENT CPT-4 47121 February 15, 2016 Vital Signs Date/Time: February 15, 2016 Temperature 98.9 F Height 62.5 in Weight 258.8 lbs Blood Pressure Diastolic 70 mm Hg Blood Pressure Systolic 166 mm Hg Cardiac Monitoring Heart Rate 68 /min BMI 46.58 Index Respiratory Rate 16 /min Results No Known Results Summary Purpose eClinicalWorks Submission
--- OUTSIDE RECORDS SUMMARY | 2016-12-01 11:48 | XMS REPORT ---
Author Author Beverley Crooks Organization [employer]Clinical[employer] Address Unknown Phone Unavailable Care Team Providers Care Management Specialist Name Role Phone Beverley Crooks CP Unavailable [...] status V45.11 Active Problem Coronary atherosclerosis of [place] coronary artery 414.01 Active Problem Depressive disorder, not elsewhere classified 311 Active Problem Hypothyroid 244.9 Active Problem Chronic pain syndrome 338.4 Active Medications No Known Medications Results No Known Results Summary Purpose Accumulate[employer]Works Submission
--- OUTSIDE RECORDS SUMMARY | 2016-12-01 11:48 | XMS REPORT ---
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
--- OUTSIDE RECORDS SUMMARY | 2016-12-01 11:48 | XMS REPORT ---
Author Author [facility], [facility] [place] - Organization Unknown Address Unknown Phone Unavailable Allergies, Adverse Reactions, Alerts * Neurontin causes Hives, Rash. * No Latex Allergy. * No IV Contrast Allergy. * No Known Food Allergies. Problems * Abnormal Renal Function* Status:Active. * Cardiac Care* Status:Active. * Surgical Procedure* Status:Active. Procedures No Procedures Documented. Medication Medication reconciliation has not been performed. Results LAB--BEDSIDE TESTING from 02/06/2013 6:02 AMGlucose NPT 156 mg/dL H (70-100 mg/dL ) LAB--BEDSIDE TESTING from 02/06/2013 11:09 AMGlucose NPT 273 mg/dL H (70-100 mg/ dL) LAB--CHEMISTRY from 02/06/2013 6:10 AMAnion Gap 9 (3-20 ) Albumin 2.9 g/dL L (3.5-4.8 g/dL) BUN 43 mg/dL H (4-20 mg/dL) Calcium 8.9 mg/dL (8.6-10.0 mg/dL) Chloride 103 mEq/L (99-109 mEq/L) CO2 25 mEq/L (22-32 mEq/L) Creatinine 3.50 mg/dL H (0.44-1.03 mg/dL) eGFR 13 A (>60- ) Glucose 158 mg/dL H (70-100 mg/dL) Potassium 4.8 mEq/L (3.6-5.1 mEq/L) Sodium 137 mEq/L (136-144 mEq/L) Phosphorus 5.1 mg/dL H (2.4-4.7 mg/dL) LAB--HEMATOLOGY from 02/06/2013 6:10 AMAbsolute Basophils 0.03 THOUS (0.00-0.20 THOUS) Absolute Eosinophils 0.30 THOUS (0.00-0.50 THOUS) Absolute Lymphocytes 1.85 THOUS (0.80-3.30 THOUS) Absolute Monocytes 0.76 THOUS (0.30-1.00 THOUS) Absolute Neutrophils 6.47 THOUS (1.90-7.00 THOUS) HCT 33.7 % L (37.0-47.0 %) HGB 10.9 g/dl L (12.0-16.0 g/dl) MCH 29.4 pg (27.0-32.0 pg) MCHC 32.3 g/dL (32.0-36.0 g/dL) MCV 90.8 fL (82.0-99.0 fL) MPV 9.3 fL L (9.4-12.4 fL) Platelet Count 225 K/uL (150-400 K/uL) RBC 3.71 M/uL L (4.00-5.20 M/uL) RDW 14.4 % (11.5-14.5 %) WBC 9.5 K/uL (4.8-10.8 K/uL) Basophils 0 % (0-2 %) Eosinophils 3 % (0-4 %) Immature Granulocytes 1.4 % H (0.0-1.0 %) Lymphocytes 19 % L (20-46 %) Monocytes 8 % (4-11 %) Nucleated RBC Automated 0.0 /100 WBC (0 /100 WBC) Neutrophils 68 % (51-75 %)
--- OUTSIDE RECORDS SUMMARY | 2016-12-01 11:48 | XMS REPORT ---
Author Author Beverley Crooks [facility] eClinicalWorks Address Unknown Phone Unavailable Care Team Providers Care Assistance Coordinator Name Role Phone Beverley Crooks CP Unavailable [...] Hypothyroid 244.9 Active Problem Coronary atherosclerosis of [place] coronary artery 414.01 Active Assessment Acute upper respiratory infections of unspecified site 465.9 Active Problem Chronic kidney disease, Stage IV (severe) 585.4 Active Problem Unspecified essential hypertension 401.9 Active Medications Medication Code System Code Instructions Start Date End Date Status Dosage Metoclopramide HCl [facility] [address]-58 10 MG Orally Four times a day Active 1 tablet 30 minutes before meals and at bedtime as needed Plavix [facility] [address]-79 75 MG Orally Once a day Active 1 tablet Metoprolol Tartrate [facility] [address]-35 50 MG Orally Twice a day Oct 10, 2012 Active 1 tablet Hydrocodone-Acetaminophen [facility] [address]-36 7.5-325 MG Orally three times a day Apr 14, 2014 Jun 13, 2014 Active 1 tablet as needed Procrit [facility] [address]-42 unsure dose (receives dialysis) Injection Jun 08, 2014 Active as directed Cymbalta [facility] [address]-41 90 MG Orally daily (30mg and 60mg) Active 1 capsule [employer] [place] [facility] [address] 31G X 8 MM 4 times every day May 18, 2014 Active as directed Nitrostat [facility] [address]-30 0.4 MG Sublingual every 0 hrs Active 1 tablet under the tongue and allow to dissolve as needed Triamcinolone Acetonide [facility] [address]-84 0.1 % Externally Twice a day Apr 21, 2014 Active 1 application to affected area NovoLog Flexpen [facility] [address]-27 100 UNIT/ML Subcutaneous Three times daily with meals December 19, 2013 Active 36 units Colchicine [facility] [address]-32 0.6 MG Orally Twice a day Active 1 tablet Cholecalciferol [facility] [address]-77 1000 UNIT Orally Once a day Active 2 tablets Quetiapine Fumarate [facility] [address]-08 100 MG Orally Once a day Active 1 tablet at bedtime Aspirin [facility] [address]-04 81 mg Orally Once a day Active 1 tablet Levothyroxine Sodium [facility] [address]-79 25 MCG Orally Once a day Active 1 tablet on an empty stomach in the morning Lantus SoloStar [facility] [address]-69 100 UNIT/ML Subcutaneous Once a day December 17, 2013 Active 80 units Amlodipine Besylate [facility] [address]-91 5 mg Orally Once a day Active 1 tablet Lisinopril [facility] [address]-78 20MG Orally once a day at bedtime Active 1 tablet Atorvastatin Calcium [facility] [address]-82 20 MG Orally Once a day December 17, 2013 Active 1 tablet Procedures Procedure Coding System Code Date OFFICE VISIT, EST-LOW COMPLEXITY (15 MIN.) CPT-4 44820 Jun 08, 2014 Vital Signs Date/Time: Jun 08, 2014 Height 62.5 inches Weight 240 lbs Temperature 99.2 F Blood Pressure Diastolic 70 mm Hg Blood Pressure Systolic 150 mm Hg Cardiac Monitoring Heart Rate 64 Beats per Minute BMI 43.19 Index Respiratory Rate 20 per Minute Results No Known Results Summary Purpose eClinicalWorks Submission
--- OUTSIDE RECORDS SUMMARY | 2016-12-01 11:48 | XMS REPORT | Referral Summary ---
Author Author [facility] Organization [facility] Address Unknown Phone Unavailable Care Team Providers Care Messenger Copy Name Role Phone Beverley Crooks Primary Care Physician [phone] Encounter VC Date(s): 08/26/15 - 08/26/15 [facility] [place] [id number] Discharge Diagnosis: Controlled type 2 diabetes with renal manifestation Discharge Diagnosis: Benign essential hypertension Discharge Diagnosis: Mixed hyperlipidemia Discharge Diagnosis: Depressive disorder, not elsewhere classified Discharge Diagnosis: Renal failure Discharge Disposition: 01-Home or Self Care Attending Physician: Richard Cai MD Admitting Physician: Richard Cai MD Vital Signs Most recent to 1 oldest [Reference Range]: Peripheral Pulse 72 bpm Rate [60-100 bpm] (08/26/15 10:03 AM) Respiratory Rate 14 br/min [14-20 br/min] (08/26/15 10:03 AM) Blood Pressure 146/62 mmHg [90-140/60-90 mmHg] *HI* (08/26/15 10:03 AM) Problem List Condition Effective Dates Status Health Status Informant Acute chest Active patient pain(Confirmed) Acute Active pain(Confirmed) At risk for activity Active intolerance(Confirme d)1 At risk for Active falls(Confirmed)2 At risk of pressure Active sore(Confirmed) Benign essential Active hypertension(Confirm ed) Bowel Active dysfunction(Confirme d)3 Renal Active patient failure(Confirmed) Diabetes(Confirmed) Active patient Dialysis Active patient patient(Confirmed) Fluid Active imbalance(Confirmed) 4 Shingles(Confirmed)5 Active High Active cholesterol(Confirme d) Severe Active Hypertriglyceridemia (Confirmed) Impaired skin Active integrity(Confirmed) 6 Knowledge Active deficit(Confirmed)7 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 ) Mixed Active hyperlipidemia(Confi rmed) Morbid Active patient obesity(Confirmed) Neuropathy(Confirmed Active patient ) Post herpetic Active neuralgia(Confirmed) 8 Depressive disorder, Active not elsewhere classified(Confirmed ) Self -care Active deficit(Confirmed)9 Tissue perfusion Active [...] 0 Refill(s) Start Date: 09/11/14 Status: Ordered Milk of Magnesia 8% oral suspension 2.4 g 30 mL, Oral, Bedtime (once a day), as needed for constipation, # 300 mL, 0 Refill(s) Start Date: 08/26/15 Status: Ordered MiraLax oral powder for reconstitution 17 g, Oral, Every other day, dissolve in water before taking, # 255 g, 0 Refill( s) Start Date: 08/26/15 Status: Ordered Nitrostat 0.4 mg sublingual tablet 1 tabs, SubLingual, q5min, as needed for chest pain, not to exceed 3 doses/15 min--if pain persists, seek medical attention, # 100 tabs, 0 Refill(s) Start Date: 09/11/14 Status: Ordered Clute 5 mg-325 mg oral tablet 1 tabs, [...] 0 Refill(s) Start Date: 02/11/15 Status: Ordered senna 8.6 mg oral tablet 8.6 mg 1 tabs, Oral, BID, as needed for constipation, tabs, 0 Refill(s) Start Date: 08/26/15 Status: Ordered SEROquel 150 mg, Oral, Daily, [...] Extracted from: Title: Office Visit Note Author: Richard Cai MD Date: 08/26/15 Assessment/Plan Benign essential hypertension Blood pressure appears to be adequately controlled no change in current treatment is recommended. Ordered: Office Visit Level 4 Est 20702 Controlled type 2 diabetes with renal manifestation Glucometers of been running well no change in current treatment recommended. Depressive disorder, not elsewhere classified Overall stable no change in current treatment. Ordered: Office Visit Level 4 Est 51298 Mixed hyperlipidemia Apparently stable no change in current treatment. Ordered: Office Visit Level 4 Est 49312 Renal failure She is on dialysis consistently and will continue that. Ordered: Office Visit Level 4 Est 89435 Postoperative right hip repair. She has follow-upsscheduled with her orthopedist and infectious disease specialist. She hastherapy orders in placefrom her orthopedic physician. No change in treatment at this time.
--- OUTSIDE RECORDS SUMMARY | 2016-12-01 11:48 | XMS REPORT ---
Author Author Lisbeth Multani Organization [employer] Address Unknown Phone Unavailable Care Team Providers Care Music Specialist Name Role Phone Lisbeth Multani CP Unavailable [...] Hypothyroid 244.9 Active Problem Coronary atherosclerosis of [place] coronary artery 414.01 Active Medications No Known Medications Vital Signs Date/Time: Apr 21, 2014 Height 62.5 inches Weight 233 lbs Temperature 98.5 F Blood Pressure Diastolic 68 mm Hg Blood Pressure Systolic 108 mm Hg Cardiac Monitoring Heart Rate 84 Beats per Minute Respiratory Rate 20 per Minute Results No Known Results Summary Purpose eClinicalWorks Submission
--- OUTSIDE RECORDS SUMMARY | 2016-12-01 11:48 | XMS REPORT ---
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 250.02 three times daily November 02, 2014 as directed Results No Known Results Summary Purpose eClinicalWorks Submission
--- OUTSIDE RECORDS SUMMARY | 2016-12-01 11:49 | XMS REPORT ---
Author Author Ladan Sheriff Organization [employer] Address Unknown Phone Unavailable Care Team Providers Care Business Travel Consultant Name Role Phone Ladan Sheriff CP Unavailable Allergies No Known Allergies Problems [...] Sarcoidosis 135 Active Problem Coronary atherosclerosis of [place] coronary artery 414.01 Active Problem Diabetes mellitus without mention of complication, type II or unspecified type, uncontrolled 250.02 Active Problem Hypothyroid 244.9 Active Problem Polyneuropathy in diabetes 357.2 Active Problem Proliferative diabetic retinopathy 362.02 Active Medications Medication Code System Code Instructions Start Date End Date Status Dosage [facility] [address]-51 10-325 MG Orally every 6 hrs, May fill 04-16-16. November 17, 2015 May 14, 2016 1 tablet as needed Results No Known Results Summary Purpose eClinicalWorks Submission
--- OUTSIDE RECORDS SUMMARY | 2016-12-01 11:49 | XMS REPORT ---
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 Role Phone Beverley Crooks CP Unavailable Allergies No Known Allergies Problems Problem Type Condition Code Onset Dates Condition Status Assessment Hepatomegaly R16.0 Active Assessment Hepatic steatosis [...] Instructions Start Date End Date Status Dosage Plavix [facility] [address]-72 75 MG Orally Once a day 1 tablet Cholecalciferol [facility] [address]-39 1000 UNIT Orally Once a day 2 tablets Metoprolol Tartrate [facility] [address]-32 50 MG Orally Twice a day Oct 10, 2012 1 tablet Lisinopril [facility] [address]-40 20 MG Orally Once a day 1 tablet Escitalopram Oxalate [facility] [address]-50 10 MG Orally Once a day 1 tablet Trazodone HCl [facility] [address]-08 100 MG Orally 1/2 - 1 tab once a day November 22, 2015 1 tablet at bedtime Nitrostat [facility] [address]-99 0.4 MG Sublingual max 3 doses 1 tablet under the tongue, may repeat every 5 min x3 then call 911 Emmanuelle BrooksoStar [facility] [address]-00 100 UNIT/ML Subcutaneous Once a day December 17, 2013 85 units Aspirin [facility] [address]-00 81 mg Orally Once a day 1 tablet Atorvastatin Calcium [facility] [address]-66 40 MG Orally Once a day 1 tablet Omeprazole [facility] [address]-05 20 MG Orally BID x1 month then QD Jul 04, 2016 1 capsule Blood Glucose Meter [facility] 0 1 as directed. Dispense lancets and test strips dx , 250.02. Patient with low vision, needs large-number meter or talking meter TID , Jul 16, 2014 1, Fluticasone Propionate [facility] [address]-90 50 MCG/ACT Nasally Once a day December 22, 2015 1 spray in each nostril Trazodone HCl [facility] 80836339591 100 TAKE ONE-HALF TO ONE TABLET BY MOUTH DAILY EVERY NIGHT AT BEDTIME OneTouch Delica Lancets [facility] [address]-57 none subcutaneous Three times a day Jul 16, 2015 as directed (dx E11.65) Seroquel [facility] [address]-47 200 MG Orally Once a day 1 tablet at bedtime NovoLog Flexpen [facility] [address]-39 100 UNIT/ML Subcutaneous Three times a day Jul 16, 2015 28 with breakfast and lunch and 30 units with supper Lisinopril [facility] 98569499939 20 Orally Once a day 1 tablet [employer] [facility] [address] 31G X 8 MM 4 times every day May 18, 2014 as directed Amlodipine Besylate [facility] [address]-49 10 MG Orally Twice every day 1 tablet Renvela [facility] [address]-83 800 MG Orally Three times a day 2 tablets with meals OneTouch Ultra Blue test strips [facility] 52258349029 none in vitro Dx. E11.65 three times daily May 03, 2019 as directed Procedures Procedure Coding System Code Date HEPATITIS PANEL CPT-4 41634 Aug 02, 2016 LDH CPT-4 46750 Aug 02, 2016 GGT CPT-4 51993 Aug 02, 2016 Results Name Result Date Reference Range Unit Abnormality Flag LDH ----LDH 223 [id number] 125-220 U/L H GGT ----GGT 90 [id number] 3-36 U/L H Hepatitis Panel ----Hepatitis C Total Antibody Negative [id number] ----Hepatitis B Surface Antigen Negative 20160802 ----Hepatitis A Antibody IGM Negative [id number] ----Hepatitis Core Ab IGM Negative [id number] Summary Purpose eClinicalWorks Submission
--- OUTSIDE RECORDS SUMMARY | 2016-12-01 11:49 | XMS REPORT ---
Author Author [place] - Organization Unknown Address Unknown Phone Unavailable Allergies, Adverse Reactions, Alerts * Neurontin causes Hives, Rash. * No Latex Allergy. * No IV Contrast Allergy. * No Known Food Allergies. Problems * Abnormal Renal Function* Status:Active. * Cardiac Care* Status:Active. * Surgical Procedure* Status:Active. Procedures No Procedures Documented. Medication Medication reconciliation has not been performed. Results LAB--CHEMISTRY from 01/27/2013 8:12 PMAnion Gap 11 (3-20 ) Albumin 3.0 g/dL L (3.5-4.8 g/dL) Alkaline Phosphatase 122 U/L H (26-104 U/L) ALT (SGPT) 18 U/L (14-54 U/L) AST (SGOT) 36 U/L (15-41 U/L) Bilirubin Total 0.8 mg/dL (0.2-1.2 mg/dL) BUN 13 mg/dL (4-20 mg/dL) Calcium 8.5 mg/dL L (8.6-10.0 mg/dL) Chloride 98 mEq/L L (99-109 mEq/L) CO2 26 mEq/L (22-32 mEq/L) Creatine Kinase (CPK) 207 U/L (38-234 U/L) Creatinine 2.88 mg/dL H (0.44-1.03 mg/dL) eGFR 17 A (>60- ) Globulin 4.3 g/dL (1.9-4.3 g/dL) Glucose 165 mg/dL H (70-100 mg/dL) Potassium 3.7 mEq/L (3.6-5.1 mEq/L) Sodium 135 mEq/L L (136-144 mEq/L) Protein 7.3 g/dL (6.1-7.9 g/dL) LAB--HEMATOLOGY from 01/27/2013 8:12 PMAbsolute Basophils 0.03 THOUS (0.00-0.20 THOUS) Absolute Eosinophils 0.01 THOUS (0.00-0.50 THOUS) Absolute Lymphocytes 1.25 THOUS (0.80-3.30 THOUS) Absolute Monocytes 1.26 THOUS H (0.30-1.00 THOUS) Absolute Neutrophils 9.57 THOUS H (1.90-7.00 THOUS) HCT 37.5 % (37.0-47.0 %) HGB 12.6 g/dl (12.0-16.0 g/dl) MCH 29.9 pg (27.0-32.0 pg) MCHC 33.6 g/dL (32.0-36.0 g/dL) MCV 89.1 fL (82.0-99.0 fL) MPV 9.8 fL (9.4-12.4 fL) Platelet Count 198 K/uL (150-400 K/uL) RBC 4.21 M/uL (4.00-5.20 M/uL) RDW 14.0 % (11.5-14.5 %) WBC 12.2 K/uL H (4.8-10.8 K/uL) Basophils 0 % (0-2 %) Eosinophils 0 % (0-4 %) Immature Granulocytes 0.4 % (0.0-1.0 %) Lymphocytes 10 % L (20-46 %) Monocytes 10 % (4-11 %) Nucleated RBC Automated 0.0 /100 WBC (0 /100 WBC) Neutrophils 79 % H (51-75 %)
--- OUTSIDE RECORDS SUMMARY | 2016-12-01 11:49 | XMS REPORT ---
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
--- OUTSIDE RECORDS SUMMARY | 2016-12-01 11:49 | XMS REPORT | Referral Summary ---
Author Author [facility] Organization [facility] Address Unknown Phone Unavailable Care Team Providers Care Orchard Worker Name Role Phone Beverley Crooks Primary Care Physician [phone] Encounter VC Date(s): 09/29/15 - 10/05/15 [facility] [address] [place] [address] Discharge Disposition: 01-Home or Self Care Attending Physician: Daniel Beard MD Admitting Physician: Daniel Beard MD Vital Signs Most recent to 1 oldest [Reference Range]: Temperature Axillary 36.8 degC [35.2-36.7 degC] *HI* (09/30/15 4:00 AM) Temperature Oral 37 degC [35.8-37.3 degC] (10/05/15 11:11 AM) Temperature Skin 36.1 degC [36-37 degC] (10/01/15 3:15 PM) Peripheral Pulse 71 bpm Rate [60-100 bpm] (10/05/15 11:11 AM) Heart Rate Monitored 78 bpm [60-100 bpm] (10/01/15 3:30 PM) Respiratory Rate 20 br/min [14-20 br/min] (10/05/15 11:11 AM) Blood Pressure 121/67 mmHg [90-140/60-90 mmHg] (10/05/15 11:11 AM) Mean Arterial 56 mmHg Pressure, Cuff (10/01/15 3:30 PM) SpO2 92 % (10/05/15 11:11 AM) Problem List Condition Effective Dates Status Health Status Informant Acute chest Active patient pain(Confirmed) Acute Active pain(Confirmed) At risk for activity Active intolerance(Confirme d)1 At risk for Active falls(Confirmed)2 At risk of pressure Active sore(Confirmed) Benign essential Active hypertension(Confirm ed) Bowel Active dysfunction(Confirme d)3 Cardiac Active disorder(Confirmed)4 Renal Active patient failure(Confirmed) Diabetes(Confirmed) Active patient Dialysis Active patient patient(Confirmed) Fluid Active imbalance(Confirmed) 5 Shingles(Confirmed)6 Active High Active cholesterol(Confirme d) Severe Active Hypertriglyceridemia (Confirmed) Impaired skin Active integrity(Confirmed) 7 Knowledge Active deficit(Confirmed)8 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 3Problem added automatically by system based on initiation of Bowel Dysfunction Plan of Care 4Problem added automatically by system based on initiation of Cardiac Output/ Ineffective Cardiac Perfusion Plan of Care 5Problem added automatically by system based on initiation of Fluid Volume Imbalance Plan of Care 612/07, 03/10, 01/09 7Problem added automatically by system based on initiation of Impaired Skin Integrity Plan of Care 8Problem added automatically by system based on initiation of Knowledge Deficit Plan of Care 912/07, 03/10, 01/09 10Problem added automatically by system based on initiation of Self Care Deficit Plan of Care 11Problem added automatically by system based on initiation [...] oral tablet 250 mg 1 tabs, Oral, BID, 0 Refill(s) Start Date: 10/04/15 Status: Ordered escitalopram 10 mg, Oral, Daily, 0 Refill(s) Start Date: 01/11/15 Status: Ordered Lantus 40 units, SubCutaneous, qPM, 0 Refill(s) Start Date: 09/11/14 Status: Ordered lisinopril 20 mg, Oral, Daily, 0 Refill(s) Start Date: 09/11/14 Status: Ordered metoprolol tartrate 50 mg oral tablet 1 tabs, Oral, BID, 0 Refill(s) Start Date: 09/11/14 Status: Ordered minocycline 50 mg oral capsule 100 mg 2 caps, Oral, q12hr, 0 Refill(s) Start Date: 10/04/15 Status: Ordered MiraLax oral powder for reconstitution [...] 0 Refill(s) Start Date: 09/11/14 Status: Ordered Timnath 7.5 mg-325 mg oral tablet 1 tabs, Oral, q4hr, Pain Moderate (4-6), not to exceed 8 tablets/24 hours; give with food to prevent nausea, # 30 tabs, 0 Refill(s) Start Date: 10/04/15 Stop Date: 11/02/15 Status: Ordered NovoLOG 100 units/mL subcutaneous solution 18 units, SubCutaneous, TIDWM, 0 Refill(s) Start Date: 10/04/15 Status: Ordered nystatin 488239 units/g, Topical, TID, Rash, 0 Refill(s) Start Date: 09/29/15 Status: Ordered Plavix 75 mg, Oral, Daily, 0 Refill(s) Start Date: 09/11/14 Status: Ordered Renvela 800 mg oral tablet 1,600 mg 2 tabs, Oral, TID, # 90 tabs, 0 Refill(s) Start Date: 02/11/15 Status: Ordered SEROquel 150 mg, Oral, Daily, 0 Refill(s) Start Date: 08/11/15 Status: Ordered Xarelto 10 mg oral tablet 10 mg 1 tabs, Oral, Daily, give daily at 9:00 AM for 20 days post hospital discharge for DVT prophylaxis, 0 Refill(s) Start Date: 10/04/15 Status: Ordered Results Hematology Most recent to 1 oldest [Reference Range]: WBC [4.8-10.8 6.4 10*3/uL 10*3/uL] (10/05/15 5:34 AM) RBC [4.00-5.20] 2.82 *LOW* (10/05/15 5:34 AM) Hgb [12.0-16.0 8.4 gm/dL gm/dL] *LOW* (10/05/15 5:34 AM) Hct [37.0-47.0 %] 26.1 % *LOW* (10/05/15 5:34 AM) MCV [82.0-99.0 fL] 92.6 fL (10/05/15 5:34 AM) MCH [27.0-32.0 pg] 29.8 pg (10/05/15 5:34 AM) MCHC [32.0-36.0 32.2 gm/dL gm/dL] (10/05/15 5:34 AM) RDW [11.5-14.5 %] 14.6 % *HI* (10/05/15 5:34 AM) Platelet [150-400 222 10*3/uL 10*3/uL] (10/05/15 5:34 AM) MPV [9.4-12.4 fL] 9.2 fL *LOW* (10/05/15 5:34 AM) Immature 0.3 % Granulocytes (10/05/15 5:34 AM) [0.0-1.0 %] Neutrophils [51-75 65 % %] (10/05/15 5:34 AM) Band Man [0-8 %] 4 % (10/01/15 5:25 AM) Lymphocytes [20-46 15 % %] *LOW* (10/05/15 5:34 AM) Monocytes [4-11 %] 13 % *HI* (10/05/15 5:34 AM) Eosinophils [0-4 %] 6 % *HI* (10/05/15 5:34 AM) Basophils [0-2 %] 1 % (10/05/15 5:34 AM) Neutro Absolute 4.14 10*3 [1.90-7.00 10*3] (10/05/15 5:34 AM) Lymph Absolute 0.99 10*3 [0.80-3.30 10*3] (10/05/15 5:34 AM) [place] Absolute 0.85 10*3 [0.30-1.00 10*3] (10/05/15 5:34 AM) Eos Absolute 0.39 10*3 [0.00-0.50 10*3] (10/05/15 5:34 AM) Baso Absolute 0.03 10*3 [0.00-0.20 10*3] (10/05/15 5:34 AM) Nucleated RBC 0.0 /100 WBC Automated [0 /100 (10/05/15 5:34 AM) WBC] Differential Manual *ABN* (10/01/15 5:25 AM) Chemistry Most recent to 1 oldest [Reference Range]: Sodium Lvl [136-144 130 mEq/L mEq/L] *LOW* (10/05/15 5:34 AM) Potassium Lvl 4.7 mEq/L [3.6-5.1 mEq/L] (10/05/15 5:34 AM) Chloride [99-109 95 mEq/L mEq/L] *LOW* (10/05/15 5:34 AM) CO2 [22-32 mEq/L] 26 mEq/L (10/05/15 5:34 AM) AGAP [3-20] 9 (10/05/15 5:34 AM) BUN [4-20 mg/dL] 22 mg/dL *HI* (10/05/15 5:34 AM) Glucose Lvl [70-100 137 mg/dL mg/dL] *HI* (10/05/15 5:34 AM) Creatinine Lvl 4.58 mg/dL [0.44-1.03 mg/dL] *HI* (10/05/15 5:34 AM) eGFR [>60] 10 1 *ABN* (10/05/15 5:34 AM) Calcium Lvl 8.1 mg/dL [8.6-10.0 mg/dL] *LOW* (10/05/15 5:34 AM) Albumin Lvl [3.5-4.8 2.5 gm/dL gm/dL] *LOW* (10/05/15 5:34 AM) Total Protein 6.7 gm/dL [6.1-7.9 gm/dL] (10/05/15 5:34 AM) Globulin [1.9-4.3 4.2 gm/dL gm/dL] (10/05/15 5:34 AM) ALT [14-54 U/L] 5 U/L *LOW* (10/05/15 5:34 AM) AST [15-41 U/L] 16 U/L (10/05/15 5:34 AM) Alk Phos [26-104 236 U/L U/L] *HI* (10/05/15 5:34 AM) Bili Total [0.2-1.2 0.6 mg/dL 2 mg/dL] (10/05/15 5:34 AM) Magnesium Lvl 2.1 mg/dL [1.8-2.5 mg/dL] (10/05/15 5:34 AM) Phosphorus [2.4-4.7 4.8 mg/dL 3 mg/dL] *HI* (10/03/15 5:34 AM) Total CK [38-234 56 U/L U/L] (09/29/15 7:25 AM) CKMB Mass [0.0-6.3 3.4 ng/mL ng/mL] (09/29/15 7:25 AM) CKMB Index [0.0-2.5 6.1 % %] *HI* (09/29/15 7:25 AM) Troponin [<0.06 <0.05 ng/mL ng/mL] (09/29/15 6:22 PM) Sodium Venous 131 mEq/L [136-144 mEq/L] *LOW* (09/29/15 7:28 AM) Potassium Venous 6.8 mEq/L 4 [3.6-5.1 mEq/L] *HHI* (09/29/15 7:28 AM) Calcium Ionized 1.11 mmol/L Venous [1.19-1.41 *LOW* mmol/L] (09/29/15 7:28 AM) Total CO2 Venous 23 mEq/L [25-29 mEq/L] *LOW* (09/29/15 7:28 AM) HGB Venous NPT 12.6 gm/dL [12.0-16.0 gm/dL] (09/29/15 7:28 AM) HCT Venous 37.0 % [37.0-47.0 %] (09/29/15 7:28 AM) Glucose Venous 205 mg/dL [70-100 mg/dL] *HI* (09/29/15 7:28 AM) BUN Venous [4-20] 66 *HI* (09/29/15 7:28 AM) Creatinine Venous 8.2 mg/dL [0.4-1.0 mg/dL] *HI* (09/29/15 7:28 AM) Venous CL [99-109 96 mEq/L mEq/L] *LOW* (09/29/15 7:28 AM) Anion Gap, [place] 12 [3-20] (09/29/15 7:28 AM) Blood Glucose, 159 mg/dL Capillary [74-106 *HI* mg/dL] (10/05/15 12:53 PM) TSH with Reflex Free 1.75 T4 [0.35-5.50] (09/29/15 6:22 PM) Hgb A1c [4.1-5.6 %] 6.4 % *HI* (09/30/15 8:22 AM) eAvg Glucose 137.0 mg/dL (09/30/15 8:22 AM) 1Result Comment: Multiply eGFR results by [...] levels. Normals are for venous specimens only. Blood Bank Results Most recent to 1 oldest [Reference Range]: ABO/Rh O POS (10/02/15 11:45 AM) Antibody Screen Tube NEG (10/02/15 11:45 AM) Microbiology Reports TEST: Tissue Culture and Smear1 STATUS: Auth (Verified) BODY SITE: SOURCE: Surgical-Tissue COLLECTED DATE/TIME: 10/01/15 12:25 PM Gram Smear No white blood cells No squamous epithelial cells No microorganisms observed OIF=Oil Immersion Field LPF=Low Power Field TEST: Acid Fast Bacilli Culture and Smear STATUS: Order in Progress BODY SITE: SOURCE: Surgical-Tissue COLLECTED DATE/TIME: 10/01/15 12:25 PM Acid Fast Bacilli Culture and Smear Culture in progress TEST: Anaerobic Culture2 STATUS: Auth (Verified) BODY SITE: SOURCE: Surgical-Tissue COLLECTED DATE/TIME: 10/01/15 12:25 PM Anaerobic Culture No anaerobes isolated TEST: Fungus Culture & Calcofluor White Stain STATUS: Order in Progress BODY SITE: SOURCE: Surgical-Tissue COLLECTED DATE/TIME: 10/01/15 12:25 PM Fungus Culture Culture in progress INTERPRETIVE DATA 1Gram stain called to Sawyer Storey RN 13:10 10/01/2015 2Gram stain called to Sawyer Storey RN 13:10 10/01/2015 Immunizations Vaccine Date Refusal Reason tetanus-diphth toxoids (Td) adult/adol 04/08/03 Procedures Procedure Date Related Diagnosis Body Site Insertion Intramedullary Nail Femur (Right)1 10/01/15 Removal Hardware Extremity Lower (Right)2 08/11/15 Open Reduction Internal Fixation Femur Distal 01/12/15 with Intramedullary Nail (Right)3 Adenoidectomy Anesthesia for vaginal hysterectomy Cholecystocecostomy Closure of arterial graft-enteric fistula Decompression laminectomy of lumbar spine Hysterectomy4 Tonsillectomy 1auto-populated from documented surgical case 2auto-populated from documented surgical case 3auto-populated from documented surgical case 4w/out BSO, due to bleeding Social History Social History Type Response Smoking Status Never smoker Assessment and Plan No data available for this section
--- OUTSIDE RECORDS SUMMARY | 2016-12-01 11:49 | XMS REPORT | Continuity of Care Document ---
Author Author [facility] Organization [facility] Address Unknown Phone Unavailable Care Team Providers Care Risk Officer Name Role Phone JACLYN NICHOLE APRN Primary Care Physician [phone] Insurance Providers Payer Name Policy Number Subscriber Name Relationship Medicare [id number] Jossue Carlson 18 Self [employer] [id number] Jossue Carlson 18 Self Problems Medical Problems Problem Onset Date Status Chest pain Unknown Active Chronic renal impairment Unknown Active Coronary artery disease Unknown Active Medications Medication Dose [...] PO TWICE A DAY 05/29/10 09/26/10 Discontinued [place]-3 Acid Ethyl Esters 1 Gm PO FOUR [...] Fumarate 100 Mg PO BEDTIME 05/17/11 Active Levothyroxine Sodium 25 Mcg PO DAILY 05/17/11 Active Aspirin 81 Mg PO DAILY 05/17/11 Active [Cymbalta] PO DAILY 10/20/11 10/20/12 Discontinued Duloxetine Hcl 60 Mg PO TWICE A DAY 10/20/12 Active Colchicine 0.6 Mg PO DAILY 10/20/12 04/08/13 [...] Lisinopril 20 Mg PO DAILY 09/21/13 Active Social History Social History Problem Response Recorded Date/Time Chewing Tobacco Status No 01/24/2014 5:27pm Hx Substance Use No 09/11/2014 5:12am Hx Alcohol Use No 09/11/2014 5:12am Has the pt used tobacco in the last 12 months No 04/08/2013 10:31am Tobacco Usage none 09/11/2014 5:01am Query Response Start Date Stop Date Smoking Status Never smoker Hospital Discharge Instructions No hospital discharge instructions. Plan of Care No plan of care. Functional Status Query Response Date Recorded Physical Hygiene Self September 11, 2014 5:12am Disabilities None September 11, 2014 5:12am Devices Used None September 11, 2014 5:12am Dressing Self September 11, 2014 5:12am Ambulation Self September 11, 2014 5:12am Diet Self September 11, 2014 5:12am Mental Status Alert September 11, 2014 6:03am Disabilities None September 11, 2014 5:12am Devices Used None September 11, 2014 5:12am Physical Hygiene Self September 11, 2014 5:12am Dressing Self September 11, 2014 5:12am Ambulation Self September 11, 2014 5:12am Diet Self September 11, 2014 5:12am Allergies, Adverse Reactions, Alerts Allergen Type Severity Reaction Status Last Updated Gabapentin Allergy Unknown HIVES Active 09/11/14 Pregabalin Allergy Unknown SUICIDAL THOUGHTS Active 09/11/14 Immunizations Name Given Type Hx Influenza Vaccination Y 06/15 Historical Hx Pneumococcal Vaccination Y 2010 Historical Hx Influenza Vaccination Y 06/15 Historical Hx Tetanus Toxoid Vaccination No Historical Vital Signs Acute Vital Signs Vital Response Date/Time Temperature (Fahrenheit) 98.1 deg F (96.8 - 99.1) Temperature (Calculated Celsius) 36.75222 degrees C (36.0 - 37.3) Pulse Rate (adult) 71 bpm (60 - 100) Respiratory Rate 20 breaths/min (10 - 20) O2 Sat by Pulse Oximetry 94 % (90 - 100) Blood Pressure 213/92 mm Hg Height 5 ft 1 in Weight 242 lb Body Mass Index 45.0 kg/m^2 Results Test Source Date Result Interp. Ref. Range Comments Activated Partial Thromboplast Time September 11, 2014 5:00am 32.5 SEC N 24-36 Alanine Aminotransferase (ALT/SGPT) September 11, 2014 5:00am 20 U/L N 9- 52 Albumin September 11, 2014 5:00am 4.1 G/DL N 3.5-5.0 Albumin/Globulin Ratio September 11, 2014 5:00am 1.1 RATIO N 1.1-2.2 Aldolase September 04, 2008 6:25pm Sent out - Alkaline Phosphatase September 11, 2014 5:00am 162 U/L H 38-126 Amylase Level October 20, 2012 12:48am 68 U/L N 30-110 Anion Gap September 11, 2014 5:00am 13 MEQ/L N 5-15 Arterial Blood Base [...] October 20, 2011 8:22pm 7.410 N 7.350-7.450 Aspartate Amino Transf (AST/SGOT) September 11, 2014 5:00am 19 U/L N 14- 36 B-Type Natriuretic Peptide May 17, 2011 6:47pm 89 PG/ML N 15-100 BUN/Creatinine Ratio September 11, 2014 5:00am 4 RATIO L 6-26 Band Neutrophils # [...] 0.6 % N 0-2 Blood Urea Nitrogen September 11, 2014 5:00am 27.0 MG/DL H 7-17 C-Peptide June 08, 2008 1:45pm Sent out - Calcium Level September 11, 2014 5:00am 8.4 MG/DL N 8.4-10.2 Calculated Osmolality September 11, 2014 5:00am 279 MOSM/KG N 261-280 Carbon Dioxide Level September 11, 2014 5:00am 31 MEQ/L H 22-30 Chloride Level September 11, 2014 5:00am 93 MEQ/L L 98-107 Cholesterol Level February 06, 2014 6:15am 178 MG/DL N 132-199 Cholesterol/HDL Ratio February 06, 2014 6:15am 4.7 RATIO H 0-4.0 Conjugated Bilirubin October 20, 2012 12:48am 0.00 MG/DL N 0.00-0.30 Creatine Kinase MB May 19, 2011 1:40am 1.2 NG/ML N 0-3.4 Creatinine September 11, 2014 5:00am 6.3 MG/DL H 0.7-1.2 D-Dimer September 21, 2013 7:30pm 938 NG/ML H 0-400 <400 NG/ML= PRESUMPTIVE NEGATIVE FOR PE OR DVT>400 NG/ML=ADDITIONAL EVALUATION FOR PE OR DVT RECOMMENDED Eosinophils # (Auto) September 11, 2014 5:00am [...] 2011 3:05pm 1.34 NG/DL N 0.78-2.19 Globulin September 11, 2014 5:00am 3.6 G/DL N 2.4-3.6 Glucose Level September 11, 2014 5:00am 277 MG/DL H 65-110 Hematocrit September 11, 2014 5:00am 33.2 % L 36-46 Hemoglobin September 11, 2014 5:00am 11.1 GM/DL L 12-16 Hemoglobin A1c August 05, 2012 1:40pm 8.8 % H 6-7 <6.0 NON-DIABETIC RANGE6.0-7.0 ADA THERAPEUTIC RANGE >7.0 ACTION SUGGESTED Influenza Type A Antigen September 11, 2014 5:00am Negative - Negative for Flu A protein antigen. Assay sensitivity is90%. Influenza Type B Antigen September 11, 2014 5:00am Negative - Negative for Flu B protein antigen. Assay sensitivity is90%. LDL Cholesterol, Calculated February 06, 2014 6:15am 105.6 N 66-159 Lactate Dehydrogenase May 02, 2012 3:47pm 538 U/L N 313-618 Lipase October 20, 2012 12:48am 218 U/L N 23-300 Lymphocytes # (Auto) September 11, 2014 5:00am 1.9 T/MM3 N 1-4.8 Lymphocytes # (Manual) April 09, 2013 4:45am 1.6 T/MM3 N 1-4.8 Lymphocytes % (Manual) April 09, 2013 4:45am 20.0 % L 23-45 Lymphocytes (%) (Auto) September 11, 2014 5:00am 21.7 % L 23-45 Magnesium Level August 03, 2012 10:48am 2.1 MG/DL N 1.6-2.3 Mean Corpuscular Hemoglobin September 11, 2014 5:00am 31.3 UUG N 26-34 Mean Corpuscular Hemoglobin Concent September 11, 2014 5:00am 33.4 GM/DL N 31-37 Mean Corpuscular Volume September 11, 2014 5:00am 93.5 UM3 N 80-100 Mean Platelet Volume September 11, 2014 5:00am 10.0 UM3 N 9.4-12.4 Monocytes # (Auto) September 11, 2014 5:00am 0.6 T/MM3 N 0-0.8 Monocytes # (Manual) April 09, 2013 4:45am 0.2 T/MM3 N 0-0.8 Monocytes % (Manual) April 09, 2013 4:45am 3.0 % N 0-9.0 Monocytes (%) (Auto) September 11, 2014 5:00am 7.0 % N 0-9.0 Neutrophils # (Auto) September 11, 2014 5:00am 5.7 T/MM3 N 1.8-7.7 Neutrophils # (Manual) April 09, 2013 4:45am 4.9 T/MM3 N 1.8-7.7 Neutrophils % (Manual) April 09, 2013 4:45am 63.0 % N 33-66 Neutrophils (%) (Auto) September 11, 2014 5:00am 65.6 % N 33-66 Parathyroid Hormone (Intact) November 05, 2012 11:40am 336.5 PG/ML H 7.5- 53.5 Phosphorus Level November 05, 2012 11:40am 8.0 MG/DL H 2.5-4.5 Platelet Count September 11, 2014 5:00am 194 T/MM3 N 130-400 Potassium Level September 11, 2014 5:00am 4.7 MEQ/L N 3.6-5 Prealbumin September 26, 2010 8:28pm 18.1 MG/DL N 17.6-36.0 Prothromb Time International Ratio September 11, 2014 5:00am 0.92 N 0.81- 1.09 THERAPUTIC RANGE=2.00-3.00 FOR ANTI-THROMBOSIS THERAPUTIC RANGE=2.50- 3.50 FOR IMPLANTED VALVE RDW Standard Deviation September 11, 2014 5:00am 42.6 FL N 36.9-50.2 Red Blood Count September 11, 2014 5:00am 3.55 M/MM3 L 4.00-5.20 Sodium Level September 11, 2014 5:00am 137 MEQ/L N 134-144 Thyroid Stimulating Hormone (TSH) September 11, 2014 5:00am 3.46 MIU/L N 0.47-4.68 Total Bilirubin September 11, 2014 5:00am 0.70 MG/DL N 0.20-1.30 Total Creatine Kinase May 19, 2011 1:40am 62 U/L N 30-135 COMMENT TOTAL OF 3, EVERY 6 HOURS WITH EKG Total Protein September 11, 2014 5:00am 7.7 G/DL N 6.3-8.2 Triglycerides Level February 06, 2014 6:15am 172 MG/DL H 35-135 Troponin I September 11, 2014 5:00am 0.038 ng/ml N 0-0.12 Unconjugated Bilirubin October 20, 2012 12:48am 0.00 [...] - Has specimen been collected/obtained? Y Urine RBC October 20, 2012 1:20am 3-5 /HPF H - Has specimen been collected/obtained? Y Urine Random Creatinine March 19, 2012 12:44pm 36.0 MG/DL - Urine Random Microalbumin September 05, 2011 3:05pm Ref lab rpt scanned - --- 09/06/11 0840 ---AL previously reported as: SEND OUT Urine Random Total Protein March 19, 2012 12:44pm 586.0 MG/DL H 0.0-11.0 Urine Specific [place] October 20, 2012 1:20am 1.015 - Has [...] specimen been collected/ obtained? Y VLDL Cholesterol February 06, 2014 6:15am 34.4 MG/DL H 0-28 Varicella-Zoster IgG Antibody December 28, 2008 [...] 11, 2014 5:00am 8.6 T/MM3 N 4.5-11.0 Chemistry Specimen Hemolysis September 11, 2014 5:00am < 15 0-25 0-25: No Hemolysis.26-70: Slight [...] can falsely decrease Phenytoin. Recommend specimen recollection. Oxygen Delivery Method (LAB) October 20, 2011 8:22pm Room air - Glucometer April 09, 2013 6:31am 66 mg/dL N 65-110 Lab Scanned Report February 06, 2014 10:56am LAB TEST FORM REQUEST [id number] - EKG September 06, 2009 11:05pm Complete - HDL Cholesterol Direct February 06, 2014 6:15am 38 MG/DL L 40-60 Urine Protein/Creatinine Ratio 24hr March 19, 2012 12:44pm 16.28 RATIO - Methicillin-Resist S.aureus DNA PCR September 26, 2010 11:27pm Negative - Turbidity September 11, 2014 5:00am < 20 0-20 Reactive Lymphocytes % April 08, 2013 10:45am 2.0 % H 0-0 COMMENT WILL CALL WHEN PT HERE Glomerular Filtration Rate Calc September 11, 2014 5:00am 7 - Reactive Lymphocytes # April 08, 2013 10:45am 0.2 T/MM3 H 0-0 COMMENT WILL CALL WHEN PT HERE Immature Granulocyte # (Auto) September 11, 2014 5:00am 0.02 T/MM3 N 0.00- 0.03 Immature Granulocyte % (Auto) September 11, 2014 5:00am 0.2 % N 0.0-0.5 Arterial Blood pO2 at Patient Temp October 20, 2011 8:22pm 47 MMHG L 80 -100 Icterus Index September 11, 2014 5:00am < 2 0-7 MRSA Specimen Source September 26, 2010 11:27pm Nasal - IB-Oxi-A-Type Natriuretic Peptide September 11, 2014 5:00am 7020 PG/ML H 0 -175 Rule in cut points: <50 years old=450; 50-75 years old=900; >75 years old=1800; When utilizing ProBNP rule-in cut points, adjustment for impaired renal function is typically not required. Blood Culture Blood April 03, 2013 12:45pm NO GROWTH AFTER 5 DAYS Gram Stain Toe-Left Little December 26, 2008 10:15pm Procedures No known history of procedures. Encounters Encounter Location Date/Time Departed Emergency Room [facility] 09/11/14 4:37am Recent Diagnosis
--- OUTSIDE RECORDS SUMMARY | 2016-12-01 11:49 | XMS REPORT ---
Author Author Beverley Crooks [facility] eClinicalWorks Address Unknown Phone Unavailable Care Team Providers Care Educational Aide Name Role Phone Beverley Crooks CP Unavailable [...] status V45.11 Active Problem Coronary atherosclerosis of [place] coronary artery 414.01 Active Problem Depressive disorder, not elsewhere classified 311 Active Problem Hypothyroid 244.9 Active Problem Chronic pain syndrome 338.4 Active Medications Medication Code System Code Instructions Start Date End Date Status Dosage Amoxicillin [facility] [address]-48 500 MG Orally daily Jul 04, 2016 Jul 24, 2016 2 tab Omeprazole [facility] [address]-44 20 MG Orally BID x1 month then QD Jul 04, 2016 1 capsule Clarithromycin [facility] [address]-12 500 MG Orally daily Jul 04, 2016 Jul 24, 2016 1 tablet Results No Known Results Summary Purpose eClinicalWorks Submission
--- OUTSIDE RECORDS SUMMARY | 2016-12-01 11:49 | XMS REPORT ---
Author Author Beverley Crooks [facility] eClinicalWorks Address Unknown Phone Unavailable Care Team Providers Care Casino Change Attendant Name Role Phone Beverley Crooks CP Unavailable [...] Assessment Chronic pain syndrome 338.4 Active Problem Renal dialysis status V45.11 Active Assessment Depressive disorder, not elsewhere classified 311 Active Problem Chronic pain syndrome 338.4 Active Problem Coronary atherosclerosis of [place] coronary artery 414.01 Active Problem Sarcoidosis 135 Active Problem Proliferative diabetic retinopathy 362.02 Active Problem Hypothyroid 244.9 Active Assessment Polyneuropathy in diabetes 357.2 Active Assessment Chronic kidney disease, Stage IV (severe) 585.4 Active Assessment Hypothyroid 244.9 Active Assessment Renal dialysis status V45.11 Active Assessment Diabetes mellitus without mention of complication, type II or unspecified type, uncontrolled 250.02 Active Problem Chronic kidney disease, Stage IV (severe) 585.4 Active Assessment Unspecified essential hypertension 401.9 Active Problem Unspecified essential hypertension 401.9 Active Assessment Pure hypercholesterolemia 272.0 Active Problem 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 250.02 three times daily November 02, 2014 as directed Plavix [facility] [address]-90 75 MG Orally Once a day 1 tablet Metoprolol Tartrate [facility] [address]-69 50 MG Orally Twice a day Oct 10, 2012 1 tablet Aspirin [facility] [address]-63 81 mg Orally Once a day 1 tablet Colchicine [facility] [address]-92 0.6 MG Orally Twice a day 1 tablet Hydrocodone-Acetaminophen [facility] [address]-06 10-325 MG Orally 1 TID prn pain Sep 22, 2014 January 23, 2015 1 tablet Cymbalta [facility] [address]-97 90 MG Orally daily (30mg and 60mg) 1 capsule Cholecalciferol [facility] [address]-70 1000 UNIT Orally Once a day 2 tablets [employer] [place] [facility] [address]31 31G X 8 MM 4 times every day May 18, 2014 as directed Blood Glucose Meter [facility] 0 1 as directed. Dispense lancets and test strips dx , 250.02. Patient with low vision, needs large-number meter or talking meter TID , Jul 16, 2014 1, Lantus SoloStar [facility] [address]-32 100 UNIT/ML Subcutaneous Once a day December 17, 2013 80 units Lipitor [facility] [address]-83 10 MG Orally Once a day 1 tablet Metoclopramide HCl [facility] [address]-66 10 MG Orally Four times a day 1 tablet 30 minutes before meals and at bedtime as needed Quetiapine Fumarate [facility] [address]-58 100 MG Orally Once a day 1 tablet at bedtime Levothyroxine Sodium [facility] [address]-20 25 MCG Orally Once a day 1 tablet on an empty stomach in the morning NovoLog Flexpen [facility] [address]-08 100 UNIT/ML Subcutaneous Three times daily with meals December 19, 2013 42 units with meals Nitrostat [facility] [address]-45 0.4 MG Sublingual every 0 hrs 1 tablet under the tongue and allow to dissolve as needed Amlodipine Besylate [facility] [address]-07 5 mg Orally Once a day 1 tablet Lisinopril [facility] [address]-26 20MG Orally Once a day 1 tablet Procedures Procedure Coding System Code Date [facility] visit Established Patient CPT-4 G0467 December 24, 2014 OFFICE VISIT, EST-MOD. COMPLEXITY (25 MIN) CPT-4 08700 December 24, 2014 HEMOGLOBIN A1C, IN HOUSE CPT-4 21179 December 24, 2014 LIPID PANEL CPT-4 32371 December 24, 2014 CMP CPT-4 18080 December 24, 2014 Vital Signs Date/Time: December 24, 2014 Height 62.5 in Weight 239 lbs Temperature 98.4 F Blood Pressure Diastolic 62 mm Hg Blood Pressure Systolic 120 mm Hg Cardiac Monitoring Heart Rate 62 /min BMI 43.01 Index Respiratory Rate 16 /min Results No Known Results Summary Purpose eClinicalWorks Submission
--- OUTSIDE RECORDS SUMMARY | 2016-12-01 11:49 | XMS REPORT ---
Author Author Beverley Crooks eClinicalWorks Address Unknown Phone Unavailable Care Team Providers Care Licensed Journeyman Electrician Name Role Phone Beverley Crooks CP Unavailable Allergies, Adverse Reactions, Alerts Substance Reaction Event Type Neurontin hives, rash Drug Allergy Lyrica Suicidality Drug Allergy Problems Problem Type Condition Code Onset Dates Condition Status Assessment Other dysphagia R13.19 Active Assessment Epigastric abdominal pain R10.13 Active Problem Depressive disorder, not elsewhere classified 311 Active Assessment Coughing R05 Active Problem Chronic pain syndrome 338.4 Active Assessment Right upper quadrant abdominal pain R10.11 Active Problem Major depressive disorder, single episode, [...] status V45.11 Active Problem Coronary atherosclerosis of [place] coronary artery 414.01 Active Problem Hypothyroid 244.9 Active Medications Medication Code System Code Instructions Start Date End Date Status Dosage Cholecalciferol [facility] [address]-40 1000 UNIT Orally Once a day 2 tablets Lisinopril [facility] [address]-82 20 MG Orally Once a day 1 tablet Plavix [facility] [address]-88 75 MG Orally Once a day 1 tablet Seroquel [facility] [address]-67 200 MG Orally Once a day 1 tablet at bedtime Renvela [facility] [address]-78 800 MG Orally Three times a day 2 tablets with meals NovoLog Flexpen [facility] [address]-31 100 UNIT/ML Subcutaneous Three times a day Jul 16, 2015 28 with breakfast and lunch and 30 units with supper Fluticasone Propionate [facility] [address]-42 50 MCG/ACT Nasally Once a day December 22, 2015 1 spray in each nostril Aspirin [facility] [address]-36 81 mg Orally Once a day 1 tablet Metoprolol Tartrate [facility] [address]-08 50 MG Orally Twice a day Oct 10, 2012 1 tablet [employer] [place] [facility] [address] 31G X 8 MM 4 times every day May 18, 2014 as directed OneTouch Ultra Blue test strips [facility] [id number] none in vitro Dx. E11.65 three times daily May 03, 2019 as directed Escitalopram Oxalate [facility] [address]-08 10 MG Orally Once a day 1 tablet Trazodone HCl [facility] [address]-46 100 MG Orally 1/2 - 1 tab once a day November 22, 2015 1 tablet at bedtime Amlodipine Besylate [facility] [address]-49 10 MG Orally Twice every day 1 tablet Nitrostat [facility] [address]-46 0.4 MG Sublingual max 3 doses 1 tablet under the tongue, may repeat every 5 min x3 then call 911 Trazodone HCl [facility] [id number] 100 TAKE ONE-HALF TO ONE TABLET BY MOUTH DAILY EVERY NIGHT AT BEDTIME Lantus SoloStar [facility] [address]-28 100 UNIT/ML Subcutaneous Once a day December 17, 2013 85 units OneTouch Delica Lancets [facility] [address]-46 none subcutaneous Three times a day Jul 16, 2015 as directed (dx E11.65) Atorvastatin Calcium [facility] [address]-99 40 MG Orally Once a day 1 tablet Blood Glucose Meter [facility] 0 1 as directed. Dispense lancets and test strips dx , 250.02. Patient with low vision, needs large-number meter or talking meter TID , Jul 16, 2014 1, Procedures Procedure Coding System Code Date OFFICE VISIT, EST-LOW COMPLEXITY (15 MIN.) CPT-4 76181 Jul 03, 2016 [facility] visit Established Patient CPT-4 G0467 Jul 03, 2016 Vital Signs Date/Time: Jul 03, 2016 Temperature 98.3 F Height 62.5 in Weight 258 lbs Blood Pressure Diastolic 72 mm Hg Blood Pressure Systolic 130 mm Hg Cardiac Monitoring Heart Rate 84 /min BMI 46.43 Index Oximetry 95 % Respiratory Rate 16 /min Results No Known Results Summary Purpose eClinicalWorks Submission
[2016-12-01 11:50] VITALS: TEMP 98.3; Ht 157.5 cm; Wt 108.0 kg
--- OUTSIDE RECORDS SUMMARY | 2016-12-01 11:50 | XMS REPORT ---
Author Author Shaila Jolly [facility] Address [address] [id number] Care Team Providers Care Project Program Manager Name Role Phone Shaila Jolly Unavailable [phone] PROBLEMS Type Condition ICD9-CM Code LHS11-XU Code Onset Dates Condition Status SNOMED Code Problem Generalized abdominal pain R10.84 Active 655753028 Problem Pharyngoesophageal dysphagia R13.14 Active 98810222 Problem Elevated liver enzymes R74.8 Active 958456286 Problem Diarrhea, unspecified type R19.7 Active 67307325 Problem Nausea R11.0 Active 483929862 Problem Elevated ferritin level R79.89 Active 044431537 Problem Gastroesophageal reflux disease, esophagitis presence not specified K21.9 Active 312601179 Problem Adenomatous polyp of colon, unspecified part of colon D12.6 Active 982178033 Problem Colitis K52.9 Active 77707530 Problem Schatzki's ring K22.2 Active 833957986 Problem Hiatal hernia K44.9 Active 12212415 ALLERGIES Unknown Allergies SOCIAL HISTORY No smoking Hx information available PLAN OF CARE VITAL SIGNS MEDICATIONS Unknown Medications RESULTS No Results PROCEDURES No Known procedures IMMUNIZATIONS No Known Immunizations
--- OUTSIDE RECORDS SUMMARY | 2016-12-01 11:50 | XMS REPORT | Referral Summary ---
Author Author [facility] Organization [facility] Address Unknown Phone Unavailable Care Team Providers Care Tungsten Tender Name Role Phone Bren Milner Primary Care Physician [phone] Encounter VC Date(s): 01/27/15 - 01/27/15 [facility], [address] [place] [id number] Discharge Disposition: 01-Home or Self Care Attending Physician: Yulisa Mcclure APRN Admitting Physician: Yulisa Mcclure APRN Vital Signs No data available for this section Problem List Condition Effective Dates Status Health [...] 50-100 mg, Oral, q4hr, Pain Moderate (4-6), [facility] [phone], # 90 tabs, 0 Refill(s) Start Date: 01/27/15 Status: Ordered Results No data available for this section Immunizations Vaccine Date Refusal Reason tetanus-diphth toxoids (Td) adult/adol 04/08/03 Procedures Procedure Date Related Diagnosis Body Site Open Reduction Internal Fixation Femur Distal 01/12/15 with Intramedullary Nail (Right)1 Adenoidectomy Anesthesia for vaginal hysterectomy Cholecystocecostomy Closure of arterial graft-enteric fistula Decompression laminectomy of lumbar spine Gall Bladder Hysterectomy2 Tonsillectomy 1auto-populated from documented surgical case 2w/out BSO, due to bleeding Social History Social History Type Response Smoking Status Never smoker Assessment and Plan No data available for this section
--- OUTSIDE RECORDS SUMMARY | 2016-12-01 11:50 | XMS REPORT ---
Author Author Beverley Crooks [facility] eClinicalWorks Address Unknown Phone Unavailable Care Team Providers Care [employer] Superintendent [employer] Name Role Phone Beverley Crooks CP Unavailable [...] syndrome 338.4 Active Problem Coronary atherosclerosis of [place] coronary artery 414.01 Active Problem Sarcoidosis 135 Active Problem Proliferative diabetic retinopathy 362.02 Active Problem Hypothyroid 244.9 Active Assessment Diabetes mellitus without mention of complication, type II or unspecified type, uncontrolled 250.02 Active Problem Chronic kidney disease, Stage IV (severe) 585.4 Active Problem Unspecified essential hypertension 401.9 Active Assessment Unspecified essential hypertension 401.9 Active Problem 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 Medications Medication Code System Code Instructions Start Date End Date Status Dosage Aspirin [facility] [address]-44 81 mg Orally Once a day 1 tablet Metoclopramide HCl [facility] [address]-51 10 MG Orally Four times a day 1 tablet 30 minutes before meals and at bedtime as needed Nitrostat [facility] [address]-61 0.4 MG Sublingual every 0 hrs 1 tablet under the tongue and allow to dissolve as needed Cymbalta [facility] [address]-41 90 MG Orally daily (30mg and 60mg) 1 capsule Plavix [facility] [address]-07 75 MG Orally Once a day 1 tablet OneTouch Ultra Blue test strips [facility] [id number] none in vitro Dx. 250.02 three times daily November 02, 2014 as directed Lipitor [facility] [address]-19 10 MG Orally Once a day 1 tablet Quetiapine Fumarate [facility] [address]-31 100 MG Orally Once a day 1 tablet at bedtime Lantus SoloStar [facility] [address]-09 100 UNIT/ML Subcutaneous Once a day December 17, 2013 80 units Hydrocodone-Acetaminophen [facility] [address]-69 10-325 MG Orally 1 TID prn pain Sep 22, 2014 January 23, 2015 1 tablet Lisinopril [facility] [address]-43 20MG Orally Once a day 1 tablet Levothyroxine Sodium [facility] [address]-98 25 MCG Orally Once a day 1 tablet on an empty stomach in the morning [employer] [place] [facility] [address] 31G X 8 MM 4 times every day May 18, 2014 as directed Blood Glucose Meter [facility] 0 1 as directed. Dispense lancets and test strips dx , 250.02. Patient with low vision, needs large-number meter or talking meter TID , Jul 16, 2014 1, Cholecalciferol [facility] [address]-13 1000 UNIT Orally Once a day 2 tablets NovoLog Flexpen [facility] [address]-46 100 UNIT/ML Subcutaneous Three times daily with meals December 19, 2013 42 units with meals Metoprolol Tartrate [facility] [address]-19 50 MG Orally Twice a day Oct 10, 2012 1 tablet Amlodipine Besylate [facility] [address]-43 5 mg Orally Once a day 1 tablet Colchicine [facility] [address]-03 0.6 MG Orally Twice a day 1 tablet Procedures Procedure Coding System Code Date COMPLETE CBC W/AUTO DIFF WBC CPT-4 33084 December 24, 2014 Results No Known Results Summary Purpose eClinicalWorks Submission
--- OUTSIDE RECORDS SUMMARY | 2016-12-01 11:50 | XMS REPORT ---
Author Author Beverley Crooks [facility] eClinicalWorks Address Unknown Phone Unavailable Care Team Providers Care Laborer Shaft Sinking Name Role Phone Beverley Crooks CP Unavailable Allergies No Known Allergies Problems Problem Type Condition Code Onset Dates Condition Status Assessment Other dysphagia R13.19 Active Assessment Coughing R05 Active Problem Depressive disorder, not elsewhere classified 311 Active Assessment Epigastric abdominal pain R10.13 Active Problem Chronic pain syndrome 338.4 Active [...] status V45.11 Active Problem Coronary atherosclerosis of [place] coronary artery 414.01 Active Problem Hypothyroid 244.9 Active Medications Medication Code System Code Instructions Start Date End Date Status Dosage Cholecalciferol [facility] [address]-61 1000 UNIT Orally Once a day 2 tablets Lisinopril [facility] [address]-49 20 MG Orally Once a day 1 tablet Plavix [facility] [address]-74 75 MG Orally Once a day 1 tablet Seroquel [facility] [address]-28 200 MG Orally Once a day 1 tablet at bedtime OneTouch Delica Lancets [facility] [address]-92 none subcutaneous Three times a day Jul 16, 2015 as directed (dx E11.65) Emmanuelle Hernandez [facility] [address]-26 100 UNIT/ML Subcutaneous Once a day December 17, 2013 85 units Trazodone HCl [facility] [address]-65 100 MG Orally 1/2 - 1 tab once a day November 22, 2015 1 tablet at bedtime Aspirin [facility] [address]-05 81 mg Orally Once a day 1 tablet Nitrostat [facility] [address]-05 0.4 MG Sublingual max 3 doses 1 tablet under the tongue, may repeat every 5 min x3 then call 911 Transbiomed Ultra Blue test strips [facility] [id number] none in vitro Dx. E11.65 three times daily May 03, 2019 as directed Renvela [facility] [address]-34 800 MG Orally Three times a day 2 tablets with meals NovoLog Flexpen [facility] [address]-30 100 UNIT/ML Subcutaneous Three times a day Jul 16, 2015 28 with breakfast and lunch and 30 units with supper Trazodone HCl [facility] 87902790038 100 TAKE ONE-HALF TO ONE TABLET BY MOUTH DAILY EVERY NIGHT AT BEDTIME Fluticasone Propionate [facility] [address]-63 50 MCG/ACT Nasally Once a day December 22, 2015 1 spray in each nostril Amlodipine Besylate [facility] [address]-19 10 MG Orally Twice every day 1 tablet Metoprolol Tartrate [facility] [address]-94 50 MG Orally Twice a day Oct 10, 2012 1 tablet Escitalopram Oxalate [facility] [address]-76 10 MG Orally Once a day 1 tablet Atorvastatin Calcium [facility] [address]-23 40 MG Orally Once a day 1 tablet [employer] [place] [facility] [address] 31G X 8 MM 4 times every day May 18, 2014 as directed Blood Glucose Meter [facility] 0 1 as directed. Dispense lancets and test strips dx , 250.02. Patient with low vision, needs large-number meter or talking meter TID , Jul 16, 2014 1, Procedures Procedure Coding System Code Date COMPLETE CBC W/AUTO DIFF WBC CPT-4 18000 Jul 03, 2016 COMPREHENSIVE METABOLIC PANEL CPT-4 67866 Jul 03, 2016 AMYLASE, SERUM CPT-4 39946 Jul 03, 2016 LIPASE CPT-4 07675 Jul 03, 2016 HELICOBACTER AB IGG CPT-4 63326 Jul 03, 2016 TSH CPT-4 49298 Jul 03, 2016 Results Name Result Date Reference Range Unit Abnormality Flag Comprehensive Metabolic Panel (CMP) ----Alkaline Phosphatase 207 63944724 40-150 U/L H ----Bilirubin Total 0.7 97917026 0.2-1.2 mg/dL ----Creatinine 5.12 64084831 0.57-1.11 mg/dL CH ----Calcium 8.4 23107978 8.9-10.5 mg/dL L ----Sodium 134 02742677 135-144 mEq/L L ----Globulin 4.5 25310410 1.8-4.0 g/dL H ----Potassium 4.2 59009301 3.5-5.2 mEq/L ----Anion Gap 14 67385193 3-20 ----Chloride 95 74958342 99-111 mEq/L L ----AST (SGOT) 24 91423396 5-34 U/L ----CO2 25 51843396 22-31 mEq/L ----Glucose 251 94708537 70-99 mg/dL H ----Albumin 3.8 98877572 3.4-4.8 g/dL ----ALT (SGPT) 22 89918483 0-55 U/L ----BUN 24 73965267 10-20 mg/dL H ----Protein 8.3 99697831 6.0-7.6 g/dL H Helicobactor Pylori IgG ----Helicobacter IgG 2.44 17984266 0.00-1.09 OD Ratio H Amylase ----Amylase 71 06061685 25-125 U/L CBC With Platelet and Differential ----MCHC 33.7 80585137 32.0-36.0 g/dL ----MCH 32.2 72828659 27.0-32.0 pg H ----MPV 9.9 70876471 8.8-14.8 fL ----RDW 15.6 85038015 11.5-14.5 % H ----Eosinophils 1 20160703 0-4 % ----Basophils 0 66977059 0-2 % ----Immature Granulocytes 0.6 45750618 0.0-1.0 % ----Absolute Neutrophils 7.84 30674054 1.90-7.00 10*3 H ----Platelet Count 199 20160703 150-400 K/uL ----Absolute Eosinophils 0.14 44335712 0.00-0.50 10*3 ----HCT 35.3 85632006 37.0-47.0 % L ----Absolute Basophils 0.02 45309757 0.00-0.20 10*3 ----MCV 95.4 76338773 82.0-99.0 fL ----RBC 3.70 22278484 4.00-5.20 10*6/uL L ----Absolute Lymphocytes 0.88 80021614 0.80-3.30 10*3 ----Absolute Monocytes 0.74 77123208 0.30-1.00 10*3 ----HGB 11.9 68904831 12.0-16.0 g/dL L ----Monocytes 8 90228790 4-11 % ----WBC 9.7 70974982 4.8-10.8 K/uL ----Neutrophils 81 08284779 51-75 % H ----Lymphocytes 9 15590683 20-46 % L eGFR ----eGFR 9 31795582 >60 mL/min * Lipase ----Lipase 52 79142698 8-78 U/L TSH ----TSH 1.85 46240095 0.35-4.94 uIU/mL Summary Purpose eClinicalWorks Submission
[2016-12-01] MEDS ORDERED: INSU3INS3 SQ (14:00)
[2016-12-01] MEDS ORDERED: INSU100V13 SQ (14:00)
[2016-12-01] MEDS ORDERED: COLC0.6T69 PO (14:00)
--- OUTSIDE RECORDS SUMMARY | 2016-12-01 14:04 | XMS REPORT | Continuity of Care Document ---
Author Author [facility] Organization [facility] Address Unknown Phone Unavailable Care Team Providers Care Stamper Blocker Name Role Phone JACLYN NICHOLE APRN Primary Care Physician [phone] Insurance Providers Payer Name Policy Number Subscriber Name Relationship Medicare [id number] Jossue Carlson 18 Self Bunny [employer] [id number] Jossue Carlson 18 Self Advance Directives Directive [...] PO TWICE A DAY 05/29/10 09/26/10 Discontinued [place]-3 Acid Ethyl Esters 1 Gm PO FOUR [...] F (96.8 - 99.1) Temperature (Calculated Celsius) 36.81487 degrees C (36.0 - 37.3) Pulse Rate [...] 11, 2014 5:00am 7.0 % N 0-9.0 BY-Vgv-H-Type Natriuretic Peptide September 11, 2014 5:00am 7020 [...] lab rpt scanned - --- 09/06/11 0840 ---[facility] previously reported as: SEND OUT Urine Random Total Protein March 19, 2012 12:44pm 586.0 MG/DL H 0.0-11.0 Urine Specific [place] October 20, 2012 1:20am 1.015 - Has [...] 2008 10:15pm Name: JOSSUE CARLSON Unit #: [id number] : 1955 Sex: F Loc / Svc: ED DOS: 09/11/14 Signed Report #: [id number] DIAGNOSTIC IMAGING REPORT TYPE OF EXAM: CHEST [...] Encounters Encounter Location Date/Time Departed Emergency Room [facility] 12/09/14 5:58am Registered Clinic [facility] 11/26/14 1:30pm Registered Clinic [facility] 11/25/14 12:00pm Registered Clinic [facility] 10/02/14 7:59am Departed Emergency Room [facility] 09/11/14 4:37am Recent Diagnosis
--- OUTSIDE RECORDS SUMMARY | 2016-12-01 14:04 | XMS REPORT | Continuity of Care Document ---
Author Author [facility] Organization [facility] Address Unknown Phone Unavailable Allergies Active Description Code Type Severity Reaction Onset Reported/Identified Relationship to Patient Clinical Status Yes gabapentin gabapentin Drug Allergy Moderate RASH,HIVES 02/07/2010 Yes Neurontin Drug Allergy Hives, Rash 06/08/2011 Yes Neurontin Drug Allergy N/A Hives, Rash 06/08/2011 Yes No Known Food Allergies Food Allergy 11/12/2012 Yes No Known Food Allergies Food Allergy N/A N/A 09/21/2013 Yes Lyrica Drug Allergy Moderate Adverse Reaction 09/22/2013 Yes pregabalin pregabalin Drug Allergy Mild SUICIDAL THOUGHTS 10/10/2016 Medications Problems Date Dx Coded Attending Type Code Diagnosis Diagnosed By 08/08/2012 [place], Jim Zelaya 786.50 CHEST PAIN NOS 11/12/2012 Misael Asif MD Final 250.40 DM2/NOS W GUS MANIF NSU 11/12/2012 Misael Asif MD Final 250.60 DM2/NOS W NEUR MANIF NSU 11/12/2012 Misael Asif MD Final 285.21 ANEMIA IN CKD 11/12/2012 Misael Asif MD Final 311 DEPRESSIVE DISORDER NEC 11/12/2012 Misael Asif MD Final 357.2 NEUROPATHY IN DIABETES 11/12/2012 Misael Asif MD Final 403.91 HTN CKD NOS V-ESRD 11/12/2012 Misael Asif MD Final 585.6 ESRD 11/12/2012 Misael Asif MD Final V56.0 RENAL DIALYSIS ENCOUNTER 01/27/2013 Tarik Busch MD Final 250.00 DM2/NOS UNCOMP NSU 01/27/2013 Tarik Busch MD Final 414.01 COR -ALUTIIQ VESSEL 01/27/2013 Tarik Busch MD Final 585.6 ESRD 01/27/2013 Tarik Busch MD Final 729.1 MYALGIA MYOSITIS NOS 01/27/2013 Narayan [place], Tarik Villar Final 787.03 VOMITING ALONE 02/06/2013 Morgan Crum MD Final 214.1 SKIN LIPOMA NEC 02/06/2013 Morgan Crum MD Final 250.01 DM1 UNCOMP NSU 02/06/2013 Morgan Crum MD Final 278.00 OBESITY NOS 02/06/2013 Morgan Crum MD Final 403.91 HTN CKD NOS V-ESRD 02/06/2013 Morgan Crum MD Final 414.01 COR -ALUTIIQ VESSEL 02/06/2013 Morgan Crum MD Final 530.81 ESOPHAGEAL REFLUX 02/06/2013 Morgan Crum MD Final 585.6 ESRD 02/06/2013 Morgan Crum MD Final V85.41 BMI 40.0-44.9 ADULT 09/21/2013 Misael Asif MD Final 250.42 DM2/NOS W GUS MANIF UNC 09/21/2013 Misael Asif MD Final 275.3 DISORDER PHOS METABOLISM 09/21/2013 Misael Asif MD Final 276.69 FLUID OVERLOAD NEC 09/21/2013 Misael Asif MD Final 285.21 ANEMIA IN CKD 09/21/2013 Misael Asif MD Final 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 HTN CKD NOS V-ESRD 09/21/2013 Misael Asif MD Final 414.01 COR -ALUTIIQ VESSEL 09/21/2013 Misael Aisf MD Final 514 PULMONARY CONGESTION 09/21/2013 Misael Asif MD Final 585.6 ESRD 09/21/2013 Misael Asif MD Final 786.09 RESP ABNORMALITY NEC 09/21/2013 Misael Asif MD Admitting 786.50 CHEST PAIN NOS 09/21/2013 Misael Asif MD Final V45.82 PTCA STATUS 09/21/2013 Misael Asif MD Final V58.67 LONG-TERM INSULIN USE Procedures Code Description Performed By Performed On 38.95 VENOUS CATH FOR Morgan Farnsworth MD 11/12/2012 39.95 HEMODIALYSIS Morgan Crum MD 11/12/2012 39.27 ARTERIOVENOSTOMY FOR Morgan Farnsworth MD 11/14/2012 17538 REMOVAL OF SKIN LESION Morgan Crum MD 02/06/2013 62766 LAYER CLOSURE OF WOUND(S) Morgan Crum MD 02/06/2013 21082 INSERT TUNNELED CV CATH Morgan Crum MD 02/06/2013 04747 REMOVAL TUNNELED CV CATH Radames [place], Morgan Cowan 02/06/2013 54294 AV FUSION BY BASILIC VEIN Radames HO, Morgan Cowan 02/06/2013 39.95 HEMODIALYSIS Yefri [place], Misael Too 09/24/2013 Results Test Result Range CBC W/DIFF - 08/08/12 13:50 EOSINOPHIL # 0.3 k/cumm 0.1-0.5 EOSINOPHIL % 3 % 2-4 GRANULOCYTE # 5.5 k/cumm 2.0-9.0 GRANULOCYTE % 61 % 50-75 LYMPHOCYTE # 2.1 k/cumm 1.0-4.0 LYMPHOCYTE % 24 % 20-30 MEAN CELL HGB 28.1 pg 27.0-33.0 MEAN CELL HGB CONCENTRATION 33.7 g/dL 32.0-37.0 MEAN CELL VOLUME 83.4 fl 80.0-100.0 MONOCYTE # 1.1 k/cumm 0.1-1.0 MONOCYTE % 12 % 4-6 RED BLOOD CELL 4.09 m/cumm 4.00-6.00 RED CELL DISTRIBUTION WIDTH 13.7 % 11.0- 15.6 WHITE BLOOD CELL 9.0 k/cumm 5.0-10.0 HEMOGLOBIN 11.5 gm/dL 12.0-16.0 HEMATOCRIT 34.1 % 37.0-47.0 PLATELET COUNT 209 k/cumm 150-400 MAGNESIUM - 08/08/12 13:50 MAGNESIUM 2.2 mg/dL 1.8-2.4 TROPONIN I BEDSIDE - 08/08/12 14:08 METHOD Bedside TROPONIN I < 0.04 ng/mL < 0.11 CHEM/HEM PROFILE-BEDSIDE - 08/08/12 14:20 POTASSIUM 4.0 mmol/L 3.5-5.3 METHOD Bedside ANION GAP 10 mmol/L 10-20 METHOD Bedside GLUCOSE 118 mg/dL 70-99 BLOOD UREA NITROGEN 50 mg/dL 7-20 CREATININE 3.0 mg/dL 0.6-1.0 HEMOGLOBIN 10.9 gm/dL 12.0-16.0 HEMATOCRIT 32.0 % 37.0-47.0 SODIUM 136 mmol/L 135-148 CHLORIDE 111 mmol/L 98-110 CARBON DIOXIDE 20 mmol/L 21-32 CALCIUM IONIZED 4.6 mg/dL 4.5-5.3 UA MICROSCOPIC - 08/08/12 14:56 UA BACTERIA 2+ NEGATIVE UA EPITHELIAL CELLS 2+ epi/hpf 0 - 1+ UA RBC 3-5 rbc/hpf 0 - 3 UA VOLUME FOR EXAM 12.0 mL (12mL STD) UA WBC 2-5 wbc/hpf 0 - 5 GLUCOSE (POC) - 10/10/16 11:36 GLUCOSE (POC) 72 mg/dL 70-99 GLUCOSE (POC) - 10/10/16 14:07 GLUCOSE (POC) 91 mg/dL 70-99 Encounters ACCT No. Visit Date/Time Discharge Status Pt. Type Provider Facility Loc./Unit Complaint [id number] 09/21/2013 21:58:00 2013 21:34:00 DIS Inpatient Misael Asif MD [facility] [place] F4SE [id number] 02/06/2013 05:10:00 2012 16:55:00 DIS Outpatient Morgan Crum MD [facility] F3E [id number] 01/27/2013 18:40:00 2012 22:26:00 DIS Emergency Narayan [place], Tarik Villar [facility] FERM [id number] 11/12/2012 08:22:00 2012 15:36:00 DIS Inpatient Yefri [place], Misael Gage [facility] [place] F6SE
--- OUTSIDE RECORDS SUMMARY | 2016-12-01 14:06 | XMS REPORT ---
Author Author [place] - Organization Unknown Address Unknown Phone Unavailable [...]
--- OUTSIDE RECORDS SUMMARY | 2016-12-01 14:07 | XMS REPORT ---
Author Author [place], [facility] - Organization Unknown Address Unknown Phone [...]
--- OUTSIDE RECORDS SUMMARY | 2016-12-01 14:07 | XMS REPORT | Continuity of Care Document ---
Author Author [facility] Organization [facility] Address Unknown Phone Unavailable Care Team Providers Care Medical Technologist Hematology Name Role Phone JACLYN NICHOLE APRN Primary Care Physician [phone] Insurance Providers Payer Name Policy Number Subscriber Name Relationship Medicare [id number] Jossue Carlson 18 Self [employer] [id number] Jossue Carlson 18 Self Problems Medical Problems [...] PO TWICE A DAY 05/29/10 09/26/10 Discontinued [place]-3 Acid Ethyl Esters 1 Gm PO FOUR [...] F (96.8 - 99.1) Temperature (Calculated Celsius) 36.77798 degrees C (36.0 - 37.3) Pulse Rate [...] 12:44pm 586.0 MG/DL H 0.0-11.0 Urine Specific [place] October 20, 2012 1:20am 1.015 - Has [...] 06, 2014 10:56am LAB TEST FORM REQUEST [id number] - EKG September 06, 2009 11:05pm Complete [...] Source September 26, 2010 11:27pm Nasal - PO-Lhy-B-Type Natriuretic Peptide September 11, 2014 5:00am 7020 [...] Encounters Encounter Location Date/Time Departed Emergency Room [facility] 09/11/14 4:37am Recent Diagnosis
--- NOTE | 2016-12-01 14:23 | ERPDOC ---
Departure Disposition Decision Date: Dec 01, 2016 Disposition Decision Time: 14:26 Disposition: 01 DISCHARGED HOME, SELF-CARE Impression Impression Impression: Primary Impression: Cellulitis of ear Severity: Moderate Condition: Stable Seen By: Physician only Referrals: MATTHEW JOHNSON APRN (Family) Patient Instructions: Cellulitis (ED) Problems/Meds/Labs Reviewed?: Yes Medications reviewed and manag: Yes Additional Instructions: Bactrim DS, one tablet twice daily for 10 days Follow up care ordered?: Yes Mental Status: Alert, Oriented Scripts Sulfamethoxazole/Trimethoprim (Bactrim Ds Tablet) 1 Each Tablet 1 TAB PO BID, #20 TAB Take 1 tablet, by mouth, 2 times a day. Prov: DENYS RUBIO MD 12/01/16 HPI - Skin General General Chief Complaint: Skin Rash/Abscess Stated Complaint: POSS MRSA ON RT EAR Time Seen by Provider: 13:55 HPI - Skin General Initial Comments 61-year-old female presents with infection on right earlobe. She went to her dialysis appointment today and told them she had a previous history of MRSA, they recommended she get treatment for the ear infection. Therefore she came to the ED. She also states she has neuropathy and is in an awful lot of pain and would like a shot for the pain while she is here. No fever no chills the infection on the ear just started up yesterday. She is not had any drainage from it Allergies: Coded Allergies: gabapentin (Verified Allergy, Unknown, HIVES, 01/11/15) pregabalin (Verified Allergy, Unknown, SUICIDAL THOUGHTS, 01/11/15) Past History Past Medical History Metabolic: diabetes, hypercholesterolemia, hypertension Cardiac: CAD, SD, angina GI: GERD Female: renal failure, renal insufficiency Psychological: depression Surgical History General: back, gallbladder, tonsils Cardiac: cardiac cath, cardiac stent Reproductive/: hysterectomy Family History Family PMH: FOUND: SD, cancer, diabetes, hypertension Vaccines Hx Influenza Vaccination: Yes (06/16) Hx Pneumococcal Vaccination: Yes (2010) Record Review Pertinent history updated: Yes Review of Systems Integumentary Skin: see HPI Neurological General: see HPI All other Systems All Other Systems: Reviewed and Negative Physical Exam General General Nourishment: no acute distress, adult, obese General Body Habitus: well groomed Vitals and Pain First Documented Vital Signs Date Time Temp Pulse Resp B/P Pulse Ox O2 Delivery O2 Flow Rate FiO2 12/01/16 11:50 98.3 71 20 114/56 90 Room Air Weight: Kilograms: 108.000 Height (feet): 5 Height (inches): 2.00 Triage Pain Scale: Normal Exams: Head: Normocephalic w/o trauma Chest/Resp: Clear all vences CV: Regular rate and rhythm Integumentary (brief) Comments Right earlobe with red denuded skin. No drainage Differential Diagnoses Considering: Abrasion, Cellulitis, Insect Sting Progress Progress Progress Bactrim DS, one tablet twice daily for cellulitis, uncertain of MRSA status. I did not culture the wound is we will treat it as MRSA due to history. Patient did ask for a narcotic shot for her chronic neuropathy. I offered Toradol, but she cannot have NSAIDs. She states she is also allergic to Neurontin and Lyrica. I recommended she work this out with her primary care provider. DENYS RUBIO MD Dec 01, 2016 14:23
[2016-12-01] MEDS ORDERED: SULF1TAB42 PO (14:28)
[2016-12-01 14:34] VITALS: BP 147/64; PULSE 74; RESP 17; O2SAT 94
== END 2016-12-01 14:34 | disposition home or self-care (01) ==
LOC: ED 11:39
DX: H60.11 Cellulitis of right external ear (principal); G62.9 Polyneuropathy, unspecified

== ENCOUNTER → 2017-01-23 | Outpatient (CLI) | payer MEDICARE, MEDICAID ==
[~2017-01-23] MED LIST changes: +COLC0.6T69 PO; +GADOBUTROL 10mMol/10ml INJECTION IV ONE; -INSU100C13 SQ; +INSU100V13 SQ; -INSU100V28 SQ; +INSU3INS3 SQ; +SALINE FLUSH 10ml SYRINGE ONE; +SULF1TAB42 PO
[2017-01-23 08:21] LABS: CREATININE 7.8 MG/DL (0.7-1.2)
--- NOTE | 2017-01-23 11:01 | DI ---
Indication: ITS.REASON: H91.8X1; H90.3 Sensorineural hearing loss, bilateral PROCEDURE: MRI BRAIN W/IAC W/WO CONTRAST: Encounter: Initial Comparisons: Head CT dated May 23, 2011 Technique: Multiplanar, multisequence, MR imaging of the head with and without contrast was acquired. Special sequences were performed with attention to the internal auditory canals and cranial nerves VII and VIII Contrast: 10 mL of Gadavist FINDINGS: IACs: No mass lesions seen in the internal auditory canals or cerebellopontine angles. Cranial nerves VII and VIII appear normal bilaterally. The cochlea and semicircular canals appear normal and symmetric. No abnormal enhancement seen within the IACs. The trigeminal nerves appear normal bilaterally. Brain: Empty sella noted. The ventricles are of normal size, shape, and contour for the patient's age. The brain stem, cerebellum, and cerebral hemispheres otherwise have a normal morphologic appearance as well as MR signal intensity on all pulse sequences. Following intravenous administration of contrast, no areas of abnormal enhancement are evident. There are no areas of restricted diffusion to suggest an acute infarct. There is no evidence of an intracranial mass lesion, intracranial hemorrhage, or hydrocephalus. The visualized portions of the orbits, calvarium, paranasal sinuses, and skull base demonstrate no significant abnormality. IMPRESSION: No lesions seen in the internal auditory canals. Unremarkable MRI of the head for the patient's age with and without contrast. .
== END ==
LOC: IMA 07:55
PROVIDERS: ATTEND Otolaryngology
DX: H90.3 Sensorineural hearing loss, bilateral (principal)
CPT/HCPCS: 36415; 70553; 82565; A9585